=== PATIENT | male | born 1950 | race Caucasian/White ===

== ENCOUNTER 2016-07-20 11:11 | Emergency (ER) | payer BC ==
[2016-07-20 11:26] VITALS: BP 110/67
--- NOTE | 2016-07-20 13:10 | UC ---
Kendrick Hinojosa Adam, scribed for Rosalina Man MD on 07/20/16 at 1125 . Cardiac HPI - HPI Summary HPI Summary: Pt is a 65 year old male presenting with CP. He first felt a pressure in the sub -sternal region of his chest as he was exerting himself several days ago. He thought that it was GERD and took Prevacid and Mylanta which did not help, but the pain resolved spontaneously. He has been having the same chest pressure intermittently since then. It tends to dissipate after the pt sits down for approximately 10 minutes. He reports SOB associated with the CP. He also reports ankle edema, worse in the left. He denies diaphoresis, nausea, cough, dizziness, dysuria, rash. He states that the pain is aggravated by exertion. He states that it has been a very stressful week and he has been very physically active in helping with construction at his home. PMHx of HTN. FMHx of DM. - History of Current Complaint Stated Complaint: CHEST COMPLAINT Time Seen by Provider: 07/20/16 11:21 Hx Obtained From: Patient Onset/Duration: Gradual Onset, Lasting Days, Still Present Timing: Intermittent Episodes Lasting: - Approximately 10 minutes Initial Severity: Moderate Current Severity: Moderate Chest Pain Location: Lower Sternal Character: Pressure/Squeezing Aggravating: Exertion Alleviating: Rest Associated Signs & Symptoms: Positive: SOB, Swelling - BLE - Allergy/Home Medications Allergies/Adverse Reactions: Allergies Allergy/AdvReac Type Severity Reaction Status Date / Time Codeine Allergy Unknown Unknown Verified 07/20/16 12:37 Reaction Details PMH/Surg Hx/FS Hx/Imm Hx Cardiovascular History Of: Reports: Hypertension - Family History Known Family History: Positive: Diabetes - Social History Smoking Status (MU): Never Smoked Tobacco Review of Systems Constitutional: Negative Respiratory: Shortness Of Breath Cardiovascular: Chest Pain Musculoskeletal: Edema Neurological: Negative All Other Systems Reviewed And Are Negative: Yes Physical Exam Triage Information Reviewed: Yes Appearance: No Pain Distress, Well-Nourished, Other: - [place] color Eyes: Positive: Conjunctiva Clear, Other: - Clear corneas ENT: Positive: Pharynx normal - No purulence, Other: - Normal TM's and canals, no discharge. Normal nasal mucosa.. Negative: Pharyngeal erythema, Nasal drainage, TM red, Tonsillar swelling, Tonsillar exudate Dental Exam: Normal Neck: Positive: Supple, Nontender, Other: - FROM, no crepitus, no masses, no JVD. Respiratory: Positive: Chest non-tender, Normal breath sounds, No respiratory distress. Negative: Rhonchi, Wheezing Cardiovascular: Positive: RRR, No Murmur, Pulses Normal - Good pedal pulses. Abdomen Description: Positive: Nontender, No Organomegaly. Negative: Bruit, CVA Tenderness (R), CVA Tenderness (L) Bowel Sounds: Positive: Present, Other: - Normoactive Musculoskeletal: Positive: Strength Intact, ROM Intact, Other: - 2-3+ pitting edema in both lower extremities. Neurological: Positive: Alert, Muscle Tone Normal, Other: - Oriented x3. Normal DTR's and normal cranial nerves. Psychological: Positive: Normal Response To Family, Age Appropriate Behavior Skin: Negative: rashes, significant lesion(s) Diagnostics - Laboratory Diagnostic Studies Completed/Ordered: EKG @ 11:27. 65 BPM. Normal sinus rhythm. ST segment depressions in II, II, aVF, V4, V5, and V6. These are new from . - Clinical Impression Provider Diagnoses: CAD, angina. Discharge - Discharge Plan Condition: Stable Disposition: AGAINST MEDICAL ADVICE Referrals: Torsten Rudd MD [Primary Care Provider] - The documentation as recorded by the Kendrick jauregui Adam accurately reflects the service I personally performed and the decisions made by , Rosalina Man MD.
== END 2016-07-20 12:20 | disposition left against medical advice (07) ==
LOC: UCEAST 11:11
DX: I25.119 Atherosclerotic heart disease of native coronary artery with unspecified angina pectoris (principal); Z88.5 Allergy status to narcotic agent
CPT/HCPCS: 93005; 99212; G0463

== ENCOUNTER 2016-07-20 12:33 | Inpatient (IN) | payer BC ==
[2016-07-20] MEDS ORDERED: NS 0.9% 1000 ML* 1,000 ML IV SCH (13:00)
--- NOTE | 2016-07-20 13:29 | RAD ---
HISTORY: Chest pain COMPARISONS: None VIEWS: 2: Frontal dual-energy and lateral views of the chest. FINDINGS: CARDIOMEDIASTINAL SILHOUETTE: The cardiomediastinal silhouette is normal. SUSHMA: The sushma are normal. PLEURA: The costophrenic angles are sharp. No pleural abnormalities are noted. LUNG PARENCHYMA: There is hyperinflation with flattening of the diaphragm and expansion of the AP diameter of the chest. ABDOMEN: The upper abdomen is clear. There is no subphrenic gas. BONES AND SOFT TISSUES: Degenerative changes are noted along the spine. OTHER: None. IMPRESSION: HYPERINFLATION, CONSISTENT WITH COPD. NO ACTIVE CARDIOPULMONARY DISEASE.
[2016-07-20 13:37] LABS: Hematocrit 34 % (42-52); Hemoglobin 11.4 g/dl (14.0-18.0); Mean Corpuscular HGB Conc 34 g/dl (31-36); Mean Corpuscular Hemoglobin 28 pg (27-31); Mean Corpuscular Volume 84 fL (80-94); Mean Platelet Volume 8 um3 (7.4-10.4); Red Blood Count 4.05 10^6/ul (4.0-5.4); Red Cell Distribution Width 13 % (10.5-15); White Blood Count 6.2 10^3/ul (3.5-10.8)
[2016-07-20 13:53] LABS: ALT 21 U/L (7-52); AST 15 U/L (13-39); Albumin 3.6 g/dL (3.2-5.2); Alkaline Phosphatase 70 U/L (34-104); Anion Gap 5 mmol/L (2-11); BUN/Creatinine Ratio 12.1 (8-20); Blood Urea Nitrogen 11 mg/dL (6-24); C Reactive Protein 3.99 mg/L (< 5.00); CO2 Carbon Dioxide 28 mmol/L (22-32); Calcium 9.5 mg/dL (8.6-10.3); Chloride 104 mmol/L (101-111); Creatine Kinase 42 U/L (10-223); EGFR African American 108.2 (>60); EGFR Non-African American 84.1 (>60); Globulin 3.5 g/dL (2-4); Glucose 96 mg/dL (70-100); Lipase 24 U/L (11.0-82.0); Magnesium 1.8 mg/dL (1.9-2.7); Potassium 4.1 mmol/L (3.5-5.0); Sodium 137 mmol/L (133-145); Total Protein 7.1 g/dL (6.4-8.9)
[2016-07-20 13:58] LABS: Troponin I 0.69 ng/mL (<0.04)
[2016-07-20 14:09] LABS: Urine Bacteria Absent (Absent); Urine Bilirubin Negative (Negative); Urine Glucose Negative (Negative); Urine Nitrite Negative (Negative)
[2016-07-20 14:19] LABS: TSH (Thyroid Stimulating Horm) < 0.03 mcIU/mL (0.34-5.60)
[2016-07-20] MEDS ORDERED: Ondansetron INJ* 2 MG/ML VIAL IV PRN (15:04)
[2016-07-20] MEDS ORDERED: Morphine INJ* 2 MG/ML 1 ML CARPUJECT IV PRN (15:04)
[2016-07-20] MEDS ORDERED: Atenolol TAB* 25 MG PO ONE (15:12)
[2016-07-20] MEDS ORDERED: Aspirin EC Low Dose* 81 MG TAB.EC PO ONE (15:22)
--- NOTE | 2016-07-20 15:24 | ED ---
Jaciel Hinojosa Billy, scribed for Stanley Centeno MD on 07/20/16 at 1256 . HPI Chest Pain - HPI Summary HPI Summary: Patient is a 65 year-old male coming to [facility] presenting with intermittent, non- radiating, midsternal chest pain with exertion starting 5 days ago. He states that at its worst, during onset, pain severity was 4/10, and was accompanied with moderate SOB. Each episode lasts approximately 5-10 minutes, but at its worst, it lasted 15 minutes. He describes pressure and squeezing. It was worse with exertion, improved with rest. He reports LUE numbness, although he states that this has happened previously, unassociated with chest pain. He also notes swollen ankles bilaterally last night. He denies any nausea or diaphoresis. At this time in the ED, he states he has on pain. He states he has been under "extreme stress" since last week. PMHx of HTN and GERD. No previous stress tests , no history of chest pain. - History of Current Complaint Chief Complaint: EDChestPainROMI Time Seen by Provider: 07/20/16 12:45 Hx Obtained From: Patient Onset/Duration: Started Days Ago Timing: Intermittent, Lasting Minutes Initial Severity: Moderate Current Severity: None Pain Intensity: 0 - No pain in the ED at this time; 4/10 at its worst 5 days ago. Pain Scale Used: 0-10 Numeric Chest Pain Location: Mid Sternal Chest Pain Radiates: No Character: Pressure/Squeezing Aggravating Factor(s): Exertion, Other: - stress Alleviating Factor(s): Rest Associated Signs and Symptoms: Positive: Chest Pain, Recent Stress, Numbness - LUE, Shortness of Breath, Edema - ankles. Negative: Diaphoresis, Nausea - Allergy/Home Medications Allergies/Adverse Reactions: Allergies Allergy/AdvReac Type Severity Reaction Status Date / Time Codeine Allergy Unknown Unknown Verified 07/20/16 12:37 Reaction Details PMH/Surg Hx/FS Hx/Imm Hx Cardiovascular History: Reports: Hx Hypertension GI History: Reports: Hx Gastroesophageal Reflux Disease Infectious Disease History: No Infectious Disease History: Denies: Traveled Outside the [place] in Last 30 Days - Family History Known Family History: Positive: Diabetes - Social History Alcohol Use: Rare Substance Use Type: Reports: None Smoking Status (MU): Never Smoked Tobacco Review of Systems Negative: Skin Diaphoresis Positive: Chest Pain Positive: Shortness Of Breath Negative: Nausea Positive: Edema Positive: Numbness All Other Systems Reviewed And Are Negative: Yes Physical Exam Triage Information Reviewed: Yes Vital Signs On Initial Exam: Initial Vitals Temp Pulse Resp BP Pulse Ox 97.5 F 72 18 143/68 99 07/20/16 12:37 07/20/16 12:37 07/20/16 12:37 07/20/16 12:37 07/20/16 12:37 Vital Signs Reviewed: Yes Appearance: Positive: Well-Appearing, No Pain Distress Skin: Positive: Warm, Skin Color Reflects Adequate Perfusion, Dry Head/Face: Positive: Normal Head/Face Inspection Eyes: Positive: EOMI, ANA ENT: Positive: Normal ENT inspection Neck: Positive: Supple, Nontender Respiratory/Lung Sounds: Positive: Clear to Auscultation, Breath Sounds Present Cardiovascular: Positive: RRR Abdomen Description: Positive: Nontender, Soft Musculoskeletal: Positive: Edema Left - Trace pedal edema, Edema Right - Trace pedal edema Neurological: Positive: Normal, Sensory/Motor Intact, Alert, Oriented to Person Place, Time Psychiatric: Positive: Affect/Mood Appropriate Diagnostics - Vital Signs Vital Signs Temp Pulse Resp BP Pulse Ox 07/20/16 12:37 97.5 F 72 18 143/68 99 - Laboratory Lab Results: Lab Results 07/20/16 07/20/16 07/20/16 Range/Units 13:27 13:27 13:27 WBC 6.2 (3.5-10.8) 10^3/ul RBC 4.05 (4.0-5.4) 10^6/ul Hgb 11.4 L (14.0-18.0) g/dl Hct 34 L (42-52) % MCV 84 (80-94) fL MCH 28 (27-31) pg MCHC 34 (31-36) g/dl RDW 13 (10.5-15) % Plt Count 274 (150-450) 10^3/ul MPV 8 (7.4-10.4) um3 Neut % (Auto) 76.6 (38-83) % Lymph % (Auto) 13.4 L (25-47) % [place] % (Auto) 8.7 (1-9) % Eos % (Auto) 0.7 (0-6) % Baso % (Auto) 0.6 (0-2) % Absolute Neuts (auto) 4.8 (1.5-7.7) 10^3/ul Absolute Lymphs (auto) 0.8 L (1.0-4.8) 10^3/ul Absolute Monos (auto) 0.5 (0-0.8) 10^3/ul Absolute Eos (auto) 0 (0-0.6) 10^3/ul Absolute Basos (auto) 0 (0-0.2) 10^3/ul Absolute Nucleated RBC 0 10^3/ul Nucleated RBC % 0 ESR Pending INR (Anticoag Therapy) 1.04 (0.89-1.11) APTT 29.3 (26.0-36.3) seconds D-Dimer, Quantitative 230 (Less Than 230) ng/mL Sodium 137 (133-145) mmol/L Potassium 4.1 (3.5-5.0) mmol/L Chloride 104 (101-111) mmol/L Carbon Dioxide 28 (22-32) mmol/L Anion Gap 5 (2-11) mmol/L BUN 11 (6-24) mg/dL Creatinine 0.91 (0.67-1.17) mg/dL Est GFR ( Amer) 108.2 (>60) Est GFR (Non-Af Amer) 84.1 (>60) BUN/Creatinine Ratio 12.1 (8-20) Glucose 96 (70-100) mg/dL Lactic Acid (0.5-2.0) mmol/L Calcium 9.5 (8.6-10.3) mg/dL Magnesium 1.8 L (1.9-2.7) mg/dL Total Bilirubin 0.50 (0.2-1.0) mg/dL AST 15 (13-39) U/L ALT 21 (7-52) U/L Alkaline Phosphatase 70 (34-104) U/L Total Creatine Kinase 42 (10-223) U/L CK-MB (CK-2) 2.2 (0.6-6.3) ng/mL Troponin I 0.69 H* (<0.04) ng/mL C-Reactive Protein 3.99 (< 5.00) mg/L B-Natriuretic Peptide ( - 100) pg/mL Total Protein 7.1 (6.4-8.9) g/dL Albumin 3.6 (3.2-5.2) g/dL Globulin 3.5 (2-4) g/dL Albumin/Globulin Ratio 1.0 (1-3) Lipase 24 (11.0-82.0) U/L TSH < 0.03 L (0.34-5.60) mcIU/mL Free T4 Pending Total T3 Pending Urine Color Urine Appearance Urine pH (5-9) Ur Specific [place] (1.010-1.030) Urine Protein (Negative) Urine Ketones (Negative) Urine Blood (Negative) Urine Nitrate (Negative) Urine Bilirubin (Negative) Urine Urobilinogen (Negative) Ur Leukocyte Esterase (Negative) Urine WBC (Auto) (Absent) Urine RBC (Auto) (Absent) Urine Bacteria (Absent) Urine Glucose (Negative) 07/20/16 07/20/16 07/20/16 Range/Units 13:27 13:27 13:35 WBC (3.5-10.8) 10^3/ul RBC (4.0-5.4) 10^6/ul Hgb (14.0-18.0) g/dl Hct (42-52) % MCV (80-94) fL MCH (27-31) pg MCHC (31-36) g/dl RDW (10.5-15) % Plt Count (150-450) 10^3/ul MPV (7.4-10.4) um3 Neut % (Auto) (38-83) % Lymph % (Auto) (25-47) % [place] % (Auto) (1-9) % Eos % (Auto) (0-6) % Baso % (Auto) (0-2) % Absolute Neuts (auto) (1.5-7.7) 10^3/ul Absolute Lymphs (auto) (1.0-4.8) 10^3/ul Absolute Monos (auto) (0-0.8) 10^3/ul Absolute Eos (auto) (0-0.6) 10^3/ul Absolute Basos (auto) (0-0.2) 10^3/ul Absolute Nucleated RBC 10^3/ul Nucleated RBC % ESR INR (Anticoag Therapy) (0.89-1.11) APTT (26.0-36.3) seconds D-Dimer, Quantitative (Less Than 230) ng/mL Sodium (133-145) mmol/L Potassium (3.5-5.0) mmol/L Chloride (101-111) mmol/L Carbon Dioxide (22-32) mmol/L Anion Gap (2-11) mmol/L BUN (6-24) mg/dL Creatinine (0.67-1.17) mg/dL Est GFR ( Amer) (>60) Est GFR (Non-Af Amer) (>60) BUN/Creatinine Ratio (8-20) Glucose (70-100) mg/dL Lactic Acid 0.9 (0.5-2.0) mmol/L Calcium (8.6-10.3) mg/dL Magnesium (1.9-2.7) mg/dL Total Bilirubin (0.2-1.0) mg/dL AST (13-39) U/L ALT (7-52) U/L Alkaline Phosphatase (34-104) U/L Total Creatine Kinase (10-223) U/L CK-MB (CK-2) (0.6-6.3) ng/mL Troponin I (<0.04) ng/mL C-Reactive Protein (< 5.00) mg/L B-Natriuretic Peptide 164 H ( - 100) pg/mL Total Protein (6.4-8.9) g/dL Albumin (3.2-5.2) g/dL Globulin (2-4) g/dL Albumin/Globulin Ratio (1-3) Lipase (11.0-82.0) U/L TSH (0.34-5.60) mcIU/mL Free T4 Total T3 Urine Color Yellow Urine Appearance Clear Urine pH 7.0 (5-9) Ur Specific [place] 1.013 (1.010-1.030) Urine Protein Negative (Negative) Urine Ketones 1+ H (Negative) Urine Blood 1+ H (Negative) Urine Nitrate Negative (Negative) Urine Bilirubin Negative (Negative) Urine Urobilinogen Negative (Negative) Ur Leukocyte Esterase Negative (Negative) Urine WBC (Auto) Absent (Absent) Urine RBC (Auto) 2+(6-10/hpf) H (Absent) Urine Bacteria Absent (Absent) Urine Glucose Negative (Negative) Result Diagrams: 07/20/16 13:27 01/25/17 13:27 Lab Statement: Any lab studies that have been ordered have been reviewed, and results considered in the medical decision making process. - Radiology CXR Radiology Interpretation Completed By: Radiologist - HYPERINFLATION, CONSISTENT WITH COPD. NO ACTIVE CARDIOPULMONARY DISEASE. - EKG 1241 Cardiac Rate: NL - 76 bpm EKG Rhythm: Sinus Rhythm EKG Interpretation: 2mm ANDREW in V2; 1mm ANDREW in V1; ST depression inferiorlateral ; LVH Re-Evaluation - Re-Evaluation First Eval Re-Evaluation Time: 14:35 Comment: Labs reviewed. Plan for admission discussed. Chest Pain Course/Dx - Course Course Of Treatment: Because the patient only has one kidney, he was not given aspirin. Assessment/Plan: DISCUSSED RESULTS WITH PATIENT. DR LEYVA SAW PT IN ED. ADMIT HOSPITALIST STABLE. - Diagnoses Provider Diagnoses: Heart attack, Hyperthyroidism - Provider Notifications Discussed Care Of Patient With: Dr. Leyva (cardiology) @ 4000: will see the patient in the ED. Dr. Hilton (hospitalist) @ [phone]: accepts admission. Discharge - Discharge Plan Condition: Stable Disposition: ADMITTED TO [facility] Referrals: Torsten Rudd MD [Primary Care Provider] - The documentation as recorded by the Jaciel jauregui Billy accurately reflects the service I personally performed and the decisions made by me, Stanley Centeno MD.
[2016-07-20] MEDS ORDERED: Heparin DRIP 25,000 UNITS(*) 25,000 UNITS/500 ML BAG IVPB SCH (15:30)
[2016-07-20 15:47] LABS: Free T4 1.84 ng/dL (0.61-1.12)
[2016-07-20] MEDS ORDERED: Heparin VIAL(*) 5000 UNITS/ML VIAL (FIVE THOUSAND) IV SCH (16:00)
[2016-07-20] MEDS ORDERED: Enoxaparin(*) 40 MG/0.4 ML SYR SUBCUT SCH (16:00)
[2016-07-20 16:17] LABS: Erythrocyte Sed Rate 44 mm/Hr (0-20)
[2016-07-20] MEDS ORDERED: Atenolol TAB* 50 MG ONE (16:36)
--- NOTE | 2016-07-20 16:56 | ECHO ---
Patient: LEONOR JON [facility] Rec#: [id number] : 1950 Date: 07/20/2016 Age: 65y Weight: kg / NaN lbs Sex: M Room#: ED-18 Admit Date#: 07/20/2016 Type: Inpatient Referring: Jyoti Beltran MD Reading: Jyoti Beltran MD [employer]ker: Chad Ravi RDCS Transthoracic Echocardiogram Indication: CHEST PAIN BP: 143/68 HR: 83 Rhythm: NSR Findings History: GERD,HTN Technical Comments: The study quality is good. Completed 1600 Left Ventricle: The left ventricular chamber size is normal. Global left ventricular wall motion and contractility are within normal limits. The left ventricle appears hyperdynamic.Base of the inferior wall hypokinetic on the 2 chamber view. The estimated ejection fraction is 60-65%. Normal left ventricular diastolic filling is observed. Left Atrium: The left atrial chamber size is normal. Right Ventricle: The right ventricular cavity size is normal. The right ventricular global systolic function is normal. Right Atrium: The right atrial cavity size is normal. Aortic Valve: The aortic valve is trileaflet. There is no evidence of aortic regurgitation. There is no evidence of aortic stenosis. Mitral Valve: The mitral valve leaflets are mildly thickened. There is mild to moderate mitral regurgitation. The mitral regurgitant jet is posteriorly directed. Tricuspid Valve: The tricuspid valve appears normal in structure and function. There is trace tricuspid regurgitation. Unable to estimate the right ventricular systolic pressure. Pulmonic Valve: There is mild pulmonic regurgitation. Pericardium: There is no pericardial effusion. Aorta: There is no dilatation of the ascending aorta. There is no dilatation of the aortic arch. There is no dilation of the aortic root. Pulmonary Artery: The main pulmonary artery is not well visualized. Venous: The inferior vena cava is dilated. There is an approximate 50% respiratory change in the inferior vena cava dimension. Conclusions The left ventricle appears hyperdynamic overall. The base of the inferior wall is hypokinetic on the 2 chamber view. The estimated ejection fraction is 60-65%. The right ventricular global systolic function is normal. There is mild to moderate mitral regurgitation. There is trace tricuspid regurgitation. No prior echo to compare. Measurements Name Value Normal Range RVIDd (AP) 2D 2.6 cm (0.9 - 2.6) RVDdMajor (2D) 3.1 cm (2.2 - 4.4) RAd ISD 4CH 3.5 cm (3.4 - 4.9) RA (A4C)W 3.6 cm (2.9 - 4.6) IVSd (2D) 0.9 cm (0.6 - 1) LVPWd (2D) 1 cm (0.6 - 1) LVIDd (2D) 4.5 cm (3.6 - 5.4) LVIDs (2D) 3.2 cm - LV FS (2D) 30 % (25 - 45) Aortic Annulus 1.7 cm (1.4 - 2.6) Ao root diameter (2D) 3.1 cm (2.1 - 3.5) Ascending Ao 2.9 cm (2.1 - 3.4) Aortic arch 2.6 cm (1.8 - 3.4) LA dimension (AP) 2D 3.7 cm (2.3 - 3.8) LAd ISD 4CH 5.1 cm (2.9 - 5.3) LA ISD 4CH W 3.7 cm (2.5 - 4.5) Name Value Normal Range LA ESV SP 4CH (A/L) 37 ml - LA ESV SP 2CH (A/L) 54 ml - LA ESV BP (A/L) 48 ml - LA ESV BP (A/L) index 24.64 ml/m2 - LA ESV SP 4CH (MOD) 34 ml - LA ESV SP 2CH (MOD) 52 ml - Name Value Normal Range MV E-wave Vmax 0.93 m/sec - MV deceleration time 83 msec - MV A-wave Vmax 0.86 m/sec - MV E:A ratio 1.09 ratio - LV septal e' Vmax 0.1 m/sec - LV lateral e' Vmax 0.13 m/sec - LV E:e' septal ratio 9.3 ratio - LV E:e' lateral ratio 7.1 ratio - Name Value Normal Range LVOT Vmax 1.3 m/sec - Name Value Normal Range IVC diameter 2.5 cm - Name Value Normal Range PV Vmax 1.2 m/sec -
--- NOTE | 2016-07-20 17:21 | CONS ---
CARDIOLOGY CONSULTATION: DATE OF CONSULT: 07/20/16 REASON FOR CONSULT: Elevated troponins. CHIEF COMPLAINT: Shortness of breath. HISTORY OF PRESENT ILLNESS: Mr. Soto is a 65-year-old gentleman with no prior cardiac history. The patient states that he had been in his usual state of health until last Monday. He had had an extremely stressful week. 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 On Monday, he could not walk outside at all due to profound dyspnea. On Monday, he was able to walk a little better and go to the mailbox. Prior to this, because of the work being done, he had been able to do very strenuous work. He typically carries boxes of books in his job and he was lifting boxes and performing more vigorous work in his barn than usual. For several days, he had been doing very strenuous physical labor without any trouble. The patient denies orthopnea or PND. He had adjusted his reflux medications, but otherwise, there had been no changes in medications and no recent travel. No recent infectious illnesses. PAST MEDICAL HISTORY: Reflux, single kidney, elevated PSA, hypertension. PAST SURGICAL HISTORY: Includes inguinal hernia repair. FAMILY HISTORY: Significant in that his mother in her 80s of a hemorrhagic stroke. His father had a history of strokes and plaque, it sounds like in the carotid system. He has a sister who is alive. 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 He has never smoked. No history of drug abuse. REVIEW OF SYSTEMS: Negative for recent changes in bowel or bladder habits. He did say that he had a new reflux medication relatively recently that gave him bad dreams and he did awaken within the last month one night with diaphoresis in the chest area, but he felt otherwise fine. When I found on exam that he had lower extremity edema, he admitted that that was relatively new. Although he eats out much of the time, he has not changed his eating habits or increased the salt intake recently. All other review of systems was unremarkable. PHYSICAL EXAM: The patient is a tall, lean, older gentleman, in no acute distress. He is 6 feet tall, weighs 160 pounds with a BMI of 22. Blood pressure 143/68, pulse is 72 and regular, respiratory rate is 18, oxygen saturation 99% on room air, temperature 97.5. HEENT: Pupils are equal and round. Mucous membranes moist. Neck without appreciable increased JVP. Palpable carotid pulses that are free of bruits and symmetrical bilaterally. Breath sounds were clear in all darby good effort. No wheezing, rales, or rhonchi. Mild kyphoscoliosis incidentally noted. Coronary: S1, S2 regular. Soft 2/6 systolic murmur heard in the left lower sternal border with radiation towards the apex. Abdomen: Flat. Active bowel sounds. Soft, nontender. No appreciable hepatosplenomegaly or masses. Lower extremities show mild edema, 1 + in the ankle extending up into the lower leg. The lower extremities are warm. DIAGNOSTIC STUDIES/LAB DATA: The patient's 12-lead ECG shows normal sinus rhythm, 76 beats a minute, QRS axis of +75, normal AV and IV conduction times. He has mild ST depression in the inferolateral leads and biphasic T waves as well, nonspecific finding. Chest x-ray shows hyperinflation, but no infiltrates. White count 6.2, hemoglobin 11.4, platelets 274. INR 1.04, PTT of 29. D-dimer 230. Sodium 137, potassium 4.1, chloride 104, bicarb 28, BUN 11, creatinine 0.91, glucose 96. Hemoglobin A1c 6.1 (08/14/15). Magnesium 1.8. Troponin 0.69. BNP of 164. From 08/14/15, LDL cholesterol 136, total cholesterol 208, HDL cholesterol 59, triglycerides 67. TSH today is less than 0.03 mcIU/mL. Troponin #1 is 0.69. C-reactive protein 3.99. SUMMARY: Mr. Soto is a 65-year-old gentleman with acute onset of profound dyspnea 6 days ago following significant physical and emotional stress. He has a mild elevation in troponins and an abnormal ECG with nonspecific diffuse changes, although predominantly in the anterolateral leads. With this alone, the differential to my mind was Takotsubo syndrome and/or underlying coronary artery disease. The patient's very low TSH, however, is consistent with significant hyperthyroid disease which can lead to a cardiomyopathy. The patient has a murmur of tricuspid insufficiency and the lower extremity edema could be related to ventricular function, valvular function, and thyroid abnormalities. In terms of the patient's exertional dyspnea with elevated troponins and abnormal ECG, I am getting an echocardiogram to look at ventricular and valvular function. I have recommended a cardiac catheterization to evaluate for underlying atherosclerotic disease. In terms of medical management, I am recommending beta blocking him. We could start with Lopressor 25 mg b.i.d. and titrate as his vitals respond. Once we get his echocardiogram, we can see if there are indications to add an PEPE inhibitor or diuretics, but based on his clear chest x-ray, I do not recommend diuretics at this time. I do recommend baby aspirin and initiation of unfractionated heparin or Lovenox. For the LDL cholesterol of 136 a year ago, we could update this and empirically start him on a moderate-dose statin while we work up for possible atherosclerotic heart disease. For the very low TSH, we will ask for hospitalist to assist in a formal workup and diagnosis of his hyperthyroid condition. CC: Dr. Torsten Rudd; Hospitalist Service* [id number]/[facility] #: [id number] MTDD
--- NOTE | 2016-07-20 19:07 | HP ---
ADMISSION HISTORY AND PHYSICAL: DATE OF ADMISSION: 07/20/16 PRIMARY CARE PROVIDER: Dr. Rudd. ADMITTING PROVIDER: SHAYY Smith SUPERVISING PHYSICIAN: Dr. Torsten Hilton.* (DICTATED BY SHAYY SMITH) CONSULTING ROUTE SALESPERSON: Dr. Jyoti Beltran. CHIEF COMPLAINT: Dyspnea on exertion. HISTORY OF PRESENT ILLNESS: This is a 65-year-old gentleman with history of GERD and hypertension, who presented to the emergency department with complaints of dyspnea on exertion. The patient's symptoms actually started acutely about 6 days ago and has been improving but persistent over that time frame. The patient has been involved in a construction project on his barn at home. He does have hired laborers, but has been working a significant amount himself cleaning the barn out and in addition to the physical labor that he has been completing, he has also been incredibly emotionally stressed about the work that is being completed as well. On July 15, which is now 5 days ago , the patient had an acute episode of severe dyspnea on exertion. He denied associated chest pain; however, the patient's symptoms mostly resolved with rest , but since that time he has continued to have dyspnea with fairly minimal exertion, but to a lesser extent than what occurred on July 15. He denies any tremors or palpitations. He denies any significant weight loss. No family history of thyroid disorder or other endocrine concerns. The patient has no history of coronary disease. PAST MEDICAL HISTORY: 1. GERD. 2. Hypertension. 3. Localized prostate cancer, being followed closely by Urology. PAST SURGICAL HISTORY: Inguinal hernia repair. HOME MEDICATIONS: 1. Lisinopril 10 mg p.o. daily. 2. Prilosec 20 mg p.o. daily. FAMILY HISTORY: Mother and father both of complications of stroke. SOCIAL HISTORY: The patient lives alone. He is a bachelor. 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 Denies any smoking history and rarely consumes alcohol. REVIEW OF SYSTEMS: As noted above in HPI and otherwise negative. PHYSICAL EXAMINATION GENERAL: This is a very pleasant and obviously intelligent 65-year-old gentleman, in no acute distress. VITAL SIGNS: Initial vitals, temperature 97.5 degrees Fahrenheit, pulse 72 beats per minute, respiratory rate 18 per minute, oxygen saturation 99% on room air, blood pressure 143/68 mmHg. HEENT: Head is normocephalic, atraumatic. Mucous membranes are pink and moist. NECK: Neck is free of lymphadenopathy. No obvious thyromegaly or tenderness. No JVD appreciated. RESPIRATORY: Lungs are clear to auscultation without wheezes, crackles, or rhonchi. CARDIOVASCULAR: Heart has a regular rate and rhythm without murmurs, rubs, or gallops. ABDOMEN: Abdomen is soft and nontender to palpation. EXTREMITIES: There is trace to 1+ edema in both lower extremities. PSYCH: The patient is alert and appropriately oriented. DIAGNOSTIC STUDIES/LAB DATA: CBC shows white blood cell count of 6200, hemoglobin of 11.4 g/dL, platelet count of 274,000. ESR of 44. INR normal at 1.04. D-dimer negative at 230. Comprehensive metabolic panel is largely unremarkable with a sodium of 137 mmol/L, potassium 4.1 mmol/L, gap of 5 with a serum bicarb of 28, creatinine 0.91 with an estimated GFR of 84. Magnesium 1.8 , calcium 9.5. Transaminases and total bilirubin within normal limits. Troponin elevated at 0.69. CRP is normal at 3.99. BNP mildly elevated at 164. TSH is undetectable. Free T4 is high at 1.84. Total T3 is normal at 1.1. Urinalysis is positive for ketones and blood and otherwise unremarkable. Imaging: EKG shows a sinus rhythm with diffuse ST depression. There is no old EKG available for comparison. Chest x-ray shows no acute process. Preliminary echo read shows hyperdynamic left ventricle without any other obvious pathology. ASSESSMENT AND PLAN: This is a 65-year-old gentleman with a history of hypertension and gastroesophageal reflux disease, who presents today with chief complaint of dyspnea on exertion with an elevated troponin and an undetectable TSH. 1. Dyspnea on exertion - the patient has an obvious elevated troponin and in this case, it seems appropriate to treat him as acute coronary syndrome. Initiate statin, aspirin, beta maryana, and heparin drip. Dr. Jyoti Beltran has been involved in this case and has asked Dr. Reyes to please evaluate the patient for cardiac catheterization tomorrow morning. Preliminary echo demonstrates hyperdynamic ventricle. Considered Takotsubo cardiomyopathy or Graves disease, or just an acute myocardial infarction responsible for his symptoms. Also, considered pericarditis based on the appearance of his EKG. Sed rate and CRP are largely unremarkable. No obvious effusion appreciated on initial echo, but this is still potentially on the differential. 2. Depressed TSH - TSH is undetectable. Added on a free T4 and total T3. We will empirically beta block with a nonspecific beta maryana, specifically initiated atenolol. Depending on results of free T4 and total T3, consider Endocrinology consultation either on an inpatient or outpatient basis. 3. Hypertension - we will hold his lisinopril and favor for atenolol at this time. 4. Gastroesophageal reflux disease - continue PPI. 5. Code status - the patient is full code. 6. DVT prophylaxis - the patient will be fully anticoagulated on heparin drip for acute coronary syndrome. 7. Healthcare proxy is unknown. DISPOSITION: The patient is being admitted as an inpatient with diagnosis of acute coronary syndrome. I anticipate length of stay to be greater than 2 midnights. SHAYY SMITH CC: Dr. Rudd* [id number]/CPS #: [id number] MTDD
[2016-07-20] MEDS ORDERED: Enoxaparin(*) 60 MG/0.6 ML SYR SUBCUT ONE (20:00)
[2016-07-20] MEDS: Metoprolol Tartrate TAB* 25 MG PO SCH (20:36)
[2016-07-20] MEDS: Omeprazole CAP* 20 MG PO SCH (20:36)
[2016-07-20] MEDS: Atorvastatin* 80 MG TAB PO SCH (20:37)
[2016-07-20] MEDS ORDERED: Atorvastatin* 40 MG TAB PO SCH (21:00)
[2016-07-21] MEDS: Metoprolol Tartrate TAB* 25 MG PO SCH ×3 (04:28→23:42)
[2016-07-21 05:27] LABS: Corrected Retic Count 1.6 % (0.5-1.5); Hematocrit 30 % (42-52); Hemoglobin 10.2 g/dl (14.0-18.0); Immature Retic Fraction 0.54; Maturation Factor Retic 1.5; Mean Corpuscular HGB Conc 34 g/dl (31-36); Mean Corpuscular Hemoglobin 28 pg (27-31); Mean Corpuscular Volume 83 fL (80-94); Mean Platelet Volume 8 um3 (7.4-10.4); Red Blood Count 3.64 10^6/ul (4.0-5.4); Red Cell Distribution Width 13 % (10.5-15); White Blood Count 6.9 10^3/ul (3.5-10.8)
[2016-07-21 05:41] LABS: BUN/Creatinine Ratio 16.5 (8-20); Calcium 8.8 mg/dL (8.6-10.3); EGFR African American 100.5 (>60); EGFR Non-African American 78.2 (>60); Potassium 3.9 mmol/L (3.5-5.0)
[2016-07-21] MEDS: Aspirin EC Low Dose* 81 MG TAB.EC PO SCH (08:27)
[2016-07-21] MEDS ORDERED: Atenolol TAB* 25 MG PO SCH (09:00)
[2016-07-21] MEDS ORDERED: NS 0.9% 1000 ML* 1,000 ML IV SCH ×2 (09:00→15:15)
[2016-07-21] MEDS: Omeprazole CAP* 20 MG PO SCH (10:15)
[2016-07-21] MEDS ORDERED: Midazolam* 1 MG/ML 5 ML VIAL (5 MG) ONE (12:37)
[2016-07-21] MEDS ORDERED: fentaNYL* 50 MCG/ML 2 ML VIAL (100 MCG VIAL) ONE (12:37)
[2016-07-21] MEDS ORDERED: Heparin(*) 1000 UNIT/ML 10 ML VIAL CATH LAB IV ONE (12:37)
[2016-07-21] MEDS ORDERED: VERAPAMIL 2.5 MG/ML 4 ML VIAL ONE (12:37)
[2016-07-21] MEDS ORDERED: nitroGLYCERIN DRIP* 250 ML ONE (12:38)
[2016-07-21] MEDS ORDERED: Lidocaine 1% INJ* 10 MG/ML 30 ML SDV ONE (12:38)
[2016-07-21] MEDS ORDERED: Heparin 2 UNITS/ML IVPREMIX* 3,000 ML IV ONE (12:38)
[2016-07-21] MEDS ORDERED: Iodixanol* (CONTRAST) 320 MG/ML 100 ML SDV ONE ×3 (12:41→14:22)
[2016-07-21] MEDS ORDERED: Ticagrelor* 90 MG TAB PO ONE (13:58)
[2016-07-21] MEDS ORDERED: Nitroglycerin TAB 0.4 MG* 0.4 MG TAB SL PRN (15:05)
[2016-07-21] MEDS ORDERED: Atropine SYRINGE* 0.1 MG/ML 10 ML SYRINGE (1 MG) ONE (15:32)
[2016-07-21 15:48] LABS: HDL Cholesterol 39.5 mg/dL
--- NOTE | 2016-07-21 17:06 | PN ---
Subjective Date of Service: 07/21/16 Interval History: patient reports he "feels really good" no further SOB. Denies CP. reports he was under a lot of stress over the weekend/week with helping putting a new roof on which he states was very stressful and very heavy labor. Denies recent weight loss, increased appetite, or palpitations Objective Active Medications: Aspirin (Aspirin Ec Low Dose*) 81 mg PO DAILY [facility] Last Admin: 07/21/16 08:27 Dose: 81 mg Atorvastatin Calcium (Lipitor*) 80 mg PO 2100 [facility] Last Admin: 07/20/16 20:37 Dose: 80 mg Sodium Chloride (Ns 0.9% 1000 Ml*) 1,000 mls @ 100 mls/hr IV .per rate [facility] Sodium Chloride (Ns 0.9% 1000 Ml*) 1,000 mls @ 100 mls/hr IV .per rate [facility] Stop: 07/21/16 19:00 Metoprolol Tartrate (Lopressor Tab*) 25 mg PO BID [facility] Morphine Sulfate (Morphine Inj (Syringe)*) 2 mg IV Q4H PRN PRN Reason: PAIN Nitroglycerin (Nitroglycerin Tab 0.4 Mg*) 0.4 mg SL Q5M PRN PRN Reason: ANGINA Omeprazole (Prilosec Cap*) 20 mg PO DAILY [facility] Last Admin: 07/21/16 10:15 Dose: Not Given Ondansetron HCl (Zofran Inj*) 4 mg IV Q4H PRN PRN Reason: NAUSEA/VOMITING Prasugrel (Effient (Nf)) 10 mg PO DAILY [facility] Ticagrelor (Brilinta*) 90 mg PO BID [facility] Stop: 07/21/16 23:59 Vital Signs 07/20/16 07/20/16 07/20/16 17:00 17:18 17:48 Temperature 98.6 F Pulse Rate 77 78 67 Respiratory 20 18 16 Rate Blood Pressure 135/67 139/78 (mmHg) O2 Sat by Pulse 97 97 100 Oximetry 07/20/16 07/20/16 07/20/16 18:15 19:37 20:04 Temperature 98.7 F Pulse Rate 63 Respiratory 16 18 18 Rate Blood Pressure 131/59 (mmHg) O2 Sat by Pulse 99 Oximetry 07/20/16 07/21/16 07/21/16 23:51 03:42 07:13 Temperature 98.7 F 98.0 F 97.5 F Pulse Rate 58 62 55 Respiratory 20 16 14 Rate Blood Pressure 131/71 132/66 124/69 (mmHg) O2 Sat by Pulse 98 98 99 Oximetry 07/21/16 07/21/16 07/21/16 08:00 11:12 13:05 Temperature 99.8 F Pulse Rate 59 Respiratory 14 18 16 Rate Blood Pressure 143/67 (mmHg) O2 Sat by Pulse 99 Oximetry 07/21/16 07/21/16 07/21/16 13:07 15:07 15:08 Temperature Pulse Rate 54 Respiratory 14 Rate Blood Pressure 120/71 (mmHg) O2 Sat by Pulse 99 Oximetry 07/21/16 07/21/16 07/21/16 15:15 15:16 15:30 Temperature 98.4 F Pulse Rate 52 52 Respiratory 20 14 15 Rate Blood Pressure 139/68 139/68 142/63 (mmHg) O2 Sat by Pulse 99 100 Oximetry 07/21/16 07/21/16 07/21/16 15:34 15:45 16:00 Temperature 98.5 F Pulse Rate 54 52 Respiratory 15 13 Rate Blood Pressure 134/70 131/65 (mmHg) O2 Sat by Pulse 100 100 Oximetry Oxygen Devices in Use Now: None Appearance: 65 healthy appearing male sitting up in bed in NAD. A+O x3 Eyes: No Scleral Icterus, PERRLA Ears/Nose/Mouth/Throat: NL Teeth, Lips, Gums, Mucous Membranes Moist Neck: Trachea Midline Respiratory: Symmetrical Chest Expansion and Respiratory Effort, Clear to Auscultation Cardiovascular: NL Sounds; No Murmurs; No JVD, RRR, No Edema Abdominal: NL Sounds; No Tenderness; No Distention Lymphatic: No Cervical Adenopathy Extremities: No Edema Skin: No Rash or Ulcers, No Nodules or Sclerosis Neurological: Alert and Oriented x 3, NL Sensation, NL Gait, NL Muscle Strength and Tone Lines/Tubes/Other Access: Clean, Dry and Intact Peripheral IV Nutrition: Taking PO's Result Diagrams: 07/21/16 04:58 07/21/16 04:58 Additional Lab and Data: Lab Results 07/20/16 07/20/16 07/20/16 Range/Units 13:27 13:27 13:27 WBC 6.2 (3.5-10.8) 10^3/ul RBC 4.05 (4.0-5.4) 10^6/ul Hgb 11.4 L (14.0-18.0) g/dl Hct 34 L (42-52) % MCV 84 (80-94) fL MCH 28 (27-31) pg MCHC 34 (31-36) g/dl RDW 13 (10.5-15) % Plt Count 274 (150-450) 10^3/ul MPV 8 (7.4-10.4) um3 Neut % (Auto) 76.6 (38-83) % Lymph % (Auto) 13.4 L (25-47) % [place] % (Auto) 8.7 (1-9) % Eos % (Auto) 0.7 (0-6) % Baso % (Auto) 0.6 (0-2) % Absolute Neuts (auto) 4.8 (1.5-7.7) 10^3/ul Absolute Lymphs (auto) 0.8 L (1.0-4.8) 10^3/ul Absolute Monos (auto) 0.5 (0-0.8) 10^3/ul Absolute Eos (auto) 0 (0-0.6) 10^3/ul Absolute Basos (auto) 0 (0-0.2) 10^3/ul Absolute Nucleated RBC 0 10^3/ul Nucleated RBC % 0 ESR Pending INR (Anticoag Therapy) 1.04 (0.89-1.11) APTT 29.3 (26.0-36.3) seconds D-Dimer, Quantitative 230 (Less Than 230) ng/mL Sodium 137 (133-145) mmol/L Potassium 4.1 (3.5-5.0) mmol/L Chloride 104 (101-111) mmol/L Carbon Dioxide 28 (22-32) mmol/L Anion Gap 5 (2-11) mmol/L BUN 11 (6-24) mg/dL Creatinine 0.91 (0.67-1.17) mg/dL Est GFR ( Amer) 108.2 (>60) Est GFR (Non-Af Amer) 84.1 (>60) BUN/Creatinine Ratio 12.1 (8-20) Glucose 96 (70-100) mg/dL Lactic Acid (0.5-2.0) mmol/L Calcium 9.5 (8.6-10.3) mg/dL Magnesium 1.8 L (1.9-2.7) mg/dL Total Bilirubin 0.50 (0.2-1.0) mg/dL AST 15 (13-39) U/L ALT 21 (7-52) U/L Alkaline Phosphatase 70 (34-104) U/L Total Creatine Kinase 42 (10-223) U/L CK-MB (CK-2) 2.2 (0.6-6.3) ng/mL Troponin I 0.69 H* (<0.04) ng/mL C-Reactive Protein 3.99 (< 5.00) mg/L B-Natriuretic Peptide ( - 100) pg/mL Total Protein 7.1 (6.4-8.9) g/dL Albumin 3.6 (3.2-5.2) g/dL Globulin 3.5 (2-4) g/dL Albumin/Globulin Ratio 1.0 (1-3) Lipase 24 (11.0-82.0) U/L TSH < 0.03 L (0.34-5.60) mcIU/mL Free T4 Pending Total T3 Pending Urine Color Urine Appearance Urine pH (5-9) Ur Specific [place] (1.010-1.030) Urine Protein (Negative) Urine Ketones (Negative) Urine Blood (Negative) Urine Nitrate (Negative) Urine Bilirubin (Negative) Urine Urobilinogen (Negative) Ur Leukocyte Esterase (Negative) Urine WBC (Auto) (Absent) Urine RBC (Auto) (Absent) Urine Bacteria (Absent) Urine Glucose (Negative) 07/20/16 07/20/16 07/20/16 Range/Units 13:27 13:27 13:35 WBC (3.5-10.8) 10^3/ul RBC (4.0-5.4) 10^6/ul Hgb (14.0-18.0) g/dl Hct (42-52) % MCV (80-94) fL MCH (27-31) pg MCHC (31-36) g/dl RDW (10.5-15) % Plt Count (150-450) 10^3/ul MPV (7.4-10.4) um3 Neut % (Auto) (38-83) % Lymph % (Auto) (25-47) % [place] % (Auto) (1-9) % Eos % (Auto) (0-6) % Baso % (Auto) (0-2) % Absolute Neuts (auto) (1.5-7.7) 10^3/ul Absolute Lymphs (auto) (1.0-4.8) 10^3/ul Absolute Monos (auto) (0-0.8) 10^3/ul Absolute Eos (auto) (0-0.6) 10^3/ul Absolute Basos (auto) (0-0.2) 10^3/ul Absolute Nucleated RBC 10^3/ul Nucleated RBC % ESR INR (Anticoag Therapy) (0.89-1.11) APTT (26.0-36.3) seconds D-Dimer, Quantitative (Less Than 230) ng/mL Sodium (133-145) mmol/L Potassium (3.5-5.0) mmol/L Chloride (101-111) mmol/L Carbon Dioxide (22-32) mmol/L Anion Gap (2-11) mmol/L BUN (6-24) mg/dL Creatinine (0.67-1.17) mg/dL Est GFR ( Amer) (>60) Est GFR (Non-Af Amer) (>60) BUN/Creatinine Ratio (8-20) Glucose (70-100) mg/dL Lactic Acid 0.9 (0.5-2.0) mmol/L Calcium (8.6-10.3) mg/dL Magnesium (1.9-2.7) mg/dL Total Bilirubin (0.2-1.0) mg/dL AST (13-39) U/L ALT (7-52) U/L Alkaline Phosphatase (34-104) U/L Total Creatine Kinase (10-223) U/L CK-MB (CK-2) (0.6-6.3) ng/mL Troponin I (<0.04) ng/mL C-Reactive Protein (< 5.00) mg/L B-Natriuretic Peptide 164 H ( - 100) pg/mL Total Protein (6.4-8.9) g/dL Albumin (3.2-5.2) g/dL Globulin (2-4) g/dL Albumin/Globulin Ratio (1-3) Lipase (11.0-82.0) U/L TSH (0.34-5.60) mcIU/mL Free T4 Total T3 Urine Color Yellow Urine Appearance Clear Urine pH 7.0 (5-9) Ur Specific [place] 1.013 (1.010-1.030) Urine Protein Negative (Negative) Urine Ketones 1+ H (Negative) Urine Blood 1+ H (Negative) Urine Nitrate Negative (Negative) Urine Bilirubin Negative (Negative) Urine Urobilinogen Negative (Negative) Ur Leukocyte Esterase Negative (Negative) Urine WBC (Auto) Absent (Absent) Urine RBC (Auto) 2+(6-10/hpf) H (Absent) Urine Bacteria Absent (Absent) Urine Glucose Negative (Negative) Assess/Plan/Problems-Billing Assessment: Mr. Soto is a 65 yo male with a PMH of HTN, GERD who presented to the ED on 07/20 with c/o dyspnea on exertion approx 6 days prior who was found to have a troponin of 0.69 consistent with ACS - Patient Problems (1) NSTEMI (non-ST elevated myocardial infarction) Comment: - Peak Trop 0.69 - s/p cardiac cath with Dr. Reyes - 3 vessel disease found - stent to LAD and circumflex. - continue Brillinta, ASA, statin, BB, - check HgA1C - check labs in am - BMP, CBC, magnesium (2) Hyperthyroidism Comment: - pt does not appear thyroid toxic. Spoke with Dr. Smith who recommended. thyroid peroxidase and stimulating antibodies, thyroid us, start Methimazole 10 mg tonight, then 10mg BID and f/u with him in the office next week. - (3) HTN (hypertension) Comment: - controlled. continue metoprolol (4) GERD (gastroesophageal reflux disease) Comment: - continue PPI (5) DVT prophylaxis Comment: lovenox (6) Full code status Status and Disposition: inpatient with NSTEMI. Plan for DC home tomorrow if stable.
[2016-07-21 17:24] LABS: Magnesium 1.8 mg/dL (1.9-2.7)
[2016-07-21] MEDS ORDERED: Methimazole TAB* 5 MG PO ONE (20:00)
[2016-07-21] MEDS ORDERED: Ticagrelor* 90 MG TAB PO SCH (21:00)
[2016-07-21] MEDS: Atorvastatin* 80 MG TAB PO SCH (23:24)
[2016-07-22 06:09] LABS: Hematocrit 32 % (42-52); Hemoglobin 10.8 g/dl (14.0-18.0); Mean Corpuscular HGB Conc 33 g/dl (31-36); Mean Corpuscular Hemoglobin 28 pg (27-31); Mean Corpuscular Volume 83 fL (80-94); Mean Platelet Volume 8 um3 (7.4-10.4); Red Blood Count 3.89 10^6/ul (4.0-5.4); Red Cell Distribution Width 13 % (10.5-15); White Blood Count 8.8 10^3/ul (3.5-10.8)
[2016-07-22 06:43] LABS: Calcium 8.9 mg/dL (8.6-10.3); EGFR African American 112.5 (>60); EGFR Non-African American 87.5 (>60); Magnesium 1.7 mg/dL (1.9-2.7); Potassium 3.9 mmol/L (3.5-5.0)
--- NOTE | 2016-07-22 07:50 | DCNOTE ---
Subjective Date of Service: 07/22/16 Interval History: patient offers no complaints. Denies CP or SOB. Pt dneies symptoms of anxiety, tremors, weight loss, hair loss, skin changes. Reviewed medications and discharge plans. pt states understanding of DC instructions Objective Active Medications: Aspirin (Aspirin Ec Low Dose*) 81 mg PO DAILY [facility] Last Admin: 07/21/16 08:27 Dose: 81 mg Atorvastatin Calcium (Lipitor*) 80 mg PO 2100 [facility] Last Admin: 07/21/16 23:24 Dose: 80 mg Sodium Chloride (Ns 0.9% 1000 Ml*) 1,000 mls @ 100 mls/hr IV .per rate [facility] Methimazole (Tapazole Tab*) 10 mg PO BID [facility] Metoprolol Tartrate (Lopressor Tab*) 25 mg PO BID [facility] Last Admin: 07/21/16 23:42 Dose: Not Given Morphine Sulfate (Morphine Inj (Syringe)*) 2 mg IV Q4H PRN PRN Reason: PAIN Nitroglycerin (Nitroglycerin Tab 0.4 Mg*) 0.4 mg SL Q5M PRN PRN Reason: ANGINA Omeprazole (Prilosec Cap*) 20 mg PO DAILY [facility] Last Admin: 07/21/16 10:15 Dose: Not Given Ondansetron HCl (Zofran Inj*) 4 mg IV Q4H PRN PRN Reason: NAUSEA/VOMITING Prasugrel (Effient (Nf)) 10 mg PO DAILY [facility] Vital Signs 07/22/16 07/22/16 07/22/16 01:00 01:30 02:00 Temperature Pulse Rate 58 57 65 Respiratory 19 19 18 Rate Blood Pressure 130/63 131/67 129/75 (mmHg) O2 Sat by Pulse 97 97 98 Oximetry 07/22/16 07/22/16 07/22/16 02:30 03:00 03:30 Temperature Pulse Rate 50 52 50 Respiratory 16 17 16 Rate Blood Pressure 128/52 112/54 105/65 (mmHg) O2 Sat by Pulse 96 97 97 Oximetry 07/22/16 04:00 Temperature 98.7 F Pulse Rate 51 Respiratory 16 Rate Blood Pressure 117/64 (mmHg) O2 Sat by Pulse 97 Oximetry Oxygen Devices in Use Now: None Appearance: 65 yo healthy appearing male A+O x3 in NAD Eyes: No Scleral Icterus, PERRLA Ears/Nose/Mouth/Throat: NL Teeth, Lips, Gums, Mucous Membranes Moist Neck: NL Appearance and Movements; NL JVP Respiratory: Symmetrical Chest Expansion and Respiratory Effort, Clear to Auscultation Cardiovascular: NL Sounds; No Murmurs; No JVD, RRR, No Edema Abdominal: NL Sounds; No Tenderness; No Distention Lymphatic: No Cervical Adenopathy Extremities: No Edema, No Clubbing, Cyanosis, - - right wrist bandage CD+I - no erythema Skin: No Rash or Ulcers, No Nodules or Sclerosis Neurological: Alert and Oriented x 3, NL Sensation, NL Gait, NL Muscle Strength and Tone Lines/Tubes/Other Access: Clean, Dry and Intact Peripheral IV Nutrition: Taking PO's Result Diagrams: 07/22/16 05:50 07/22/16 05:50 Additional Lab and Data: Lab Results 07/20/16 07/20/16 07/20/16 Range/Units 13:27 13:27 13:27 WBC 6.2 (3.5-10.8) 10^3/ul RBC 4.05 (4.0-5.4) 10^6/ul Hgb 11.4 L (14.0-18.0) g/dl Hct 34 L (42-52) % MCV 84 (80-94) fL MCH 28 (27-31) pg MCHC 34 (31-36) g/dl RDW 13 (10.5-15) % Plt Count 274 (150-450) 10^3/ul MPV 8 (7.4-10.4) um3 Neut % (Auto) 76.6 (38-83) % Lymph % (Auto) 13.4 L (25-47) % [place] % (Auto) 8.7 (1-9) % Eos % (Auto) 0.7 (0-6) % Baso % (Auto) 0.6 (0-2) % Absolute Neuts (auto) 4.8 (1.5-7.7) 10^3/ul Absolute Lymphs (auto) 0.8 L (1.0-4.8) 10^3/ul Absolute Monos (auto) 0.5 (0-0.8) 10^3/ul Absolute Eos (auto) 0 (0-0.6) 10^3/ul Absolute Basos (auto) 0 (0-0.2) 10^3/ul Absolute Nucleated RBC 0 10^3/ul Nucleated RBC % 0 ESR Pending INR (Anticoag Therapy) 1.04 (0.89-1.11) APTT 29.3 (26.0-36.3) seconds D-Dimer, Quantitative 230 (Less Than 230) ng/mL Sodium 137 (133-145) mmol/L Potassium 4.1 (3.5-5.0) mmol/L Chloride 104 (101-111) mmol/L Carbon Dioxide 28 (22-32) mmol/L Anion Gap 5 (2-11) mmol/L BUN 11 (6-24) mg/dL Creatinine 0.91 (0.67-1.17) mg/dL Est GFR ( Amer) 108.2 (>60) Est GFR (Non-Af Amer) 84.1 (>60) BUN/Creatinine Ratio 12.1 (8-20) Glucose 96 (70-100) mg/dL Lactic Acid (0.5-2.0) mmol/L Calcium 9.5 (8.6-10.3) mg/dL Magnesium 1.8 L (1.9-2.7) mg/dL Total Bilirubin 0.50 (0.2-1.0) mg/dL AST 15 (13-39) U/L ALT 21 (7-52) U/L Alkaline Phosphatase 70 (34-104) U/L Total Creatine Kinase 42 (10-223) U/L CK-MB (CK-2) 2.2 (0.6-6.3) ng/mL Troponin I 0.69 H* (<0.04) ng/mL C-Reactive Protein 3.99 (< 5.00) mg/L B-Natriuretic Peptide ( - 100) pg/mL Total Protein 7.1 (6.4-8.9) g/dL Albumin 3.6 (3.2-5.2) g/dL Globulin 3.5 (2-4) g/dL Albumin/Globulin Ratio 1.0 (1-3) Lipase 24 (11.0-82.0) U/L TSH < 0.03 L (0.34-5.60) mcIU/mL Free T4 Pending Total T3 Pending Urine Color Urine Appearance Urine pH (5-9) Ur Specific [place] (1.010-1.030) Urine Protein (Negative) Urine Ketones (Negative) Urine Blood (Negative) Urine Nitrate (Negative) Urine Bilirubin (Negative) Urine Urobilinogen (Negative) Ur Leukocyte Esterase (Negative) Urine WBC (Auto) (Absent) Urine RBC (Auto) (Absent) Urine Bacteria (Absent) Urine Glucose (Negative) 07/20/16 07/20/16 07/20/16 Range/Units 13:27 13:27 13:35 WBC (3.5-10.8) 10^3/ul RBC (4.0-5.4) 10^6/ul Hgb (14.0-18.0) g/dl Hct (42-52) % MCV (80-94) fL MCH (27-31) pg MCHC (31-36) g/dl RDW (10.5-15) % Plt Count (150-450) 10^3/ul MPV (7.4-10.4) um3 Neut % (Auto) (38-83) % Lymph % (Auto) (25-47) % [place] % (Auto) (1-9) % Eos % (Auto) (0-6) % Baso % (Auto) (0-2) % Absolute Neuts (auto) (1.5-7.7) 10^3/ul Absolute Lymphs (auto) (1.0-4.8) 10^3/ul Absolute Monos (auto) (0-0.8) 10^3/ul Absolute Eos (auto) (0-0.6) 10^3/ul Absolute Basos (auto) (0-0.2) 10^3/ul Absolute Nucleated RBC 10^3/ul Nucleated RBC % ESR INR (Anticoag Therapy) (0.89-1.11) APTT (26.0-36.3) seconds D-Dimer, Quantitative (Less Than 230) ng/mL Sodium (133-145) mmol/L Potassium (3.5-5.0) mmol/L Chloride (101-111) mmol/L Carbon Dioxide (22-32) mmol/L Anion Gap (2-11) mmol/L BUN (6-24) mg/dL Creatinine (0.67-1.17) mg/dL Est GFR ( Amer) (>60) Est GFR (Non-Af Amer) (>60) BUN/Creatinine Ratio (8-20) Glucose (70-100) mg/dL Lactic Acid 0.9 (0.5-2.0) mmol/L Calcium (8.6-10.3) mg/dL Magnesium (1.9-2.7) mg/dL Total Bilirubin (0.2-1.0) mg/dL AST (13-39) U/L ALT (7-52) U/L Alkaline Phosphatase (34-104) U/L Total Creatine Kinase (10-223) U/L CK-MB (CK-2) (0.6-6.3) ng/mL Troponin I (<0.04) ng/mL C-Reactive Protein (< 5.00) mg/L B-Natriuretic Peptide 164 H ( - 100) pg/mL Total Protein (6.4-8.9) g/dL Albumin (3.2-5.2) g/dL Globulin (2-4) g/dL Albumin/Globulin Ratio (1-3) Lipase (11.0-82.0) U/L TSH (0.34-5.60) mcIU/mL Free T4 Total T3 Urine Color Yellow Urine Appearance Clear Urine pH 7.0 (5-9) Ur Specific [place] 1.013 (1.010-1.030) Urine Protein Negative (Negative) Urine Ketones 1+ H (Negative) Urine Blood 1+ H (Negative) Urine Nitrate Negative (Negative) Urine Bilirubin Negative (Negative) Urine Urobilinogen Negative (Negative) Ur Leukocyte Esterase Negative (Negative) Urine WBC (Auto) Absent (Absent) Urine RBC (Auto) 2+(6-10/hpf) H (Absent) Urine Bacteria Absent (Absent) Urine Glucose Negative (Negative) Assess/Plan/Problems-Billing Assessment: Mr. Soto is a 65 yo male with a PMH of HTN, GERD who presented to the ED on 07/20 with c/o dyspnea on exertion approx 6 days prior who was found to have a troponin of 0.69 consistent with ACS - Patient Problems (1) NSTEMI (non-ST elevated myocardial infarction) Comment: - Peak Trop 0.69 - s/p cardiac cath with Dr. Reyes - 3 vessel disease - stent to LAD and circumflex. - continue Brillinta, ASA, statin, BB, - HgA1C pending - f/u with Dr. Reyes next week, then Dr. 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 Very small noted nodule on us - may or may not be significant. - thyroid peroxidase and stimulating antibodies - Methimazole 10mg BID and BB - f/u with Dr. Smith next week (3) HTN (hypertension) Comment: - controlled. continue metoprolol (4) GERD (gastroesophageal reflux disease) Comment: - continue PPI (5) DVT prophylaxis Comment: lovenox (6) Full code status Status and Disposition: inpatient with NSTEMI and hyperthyroidism. Plan for DC home today
[2016-07-22] MEDS ORDERED: Magnesium Sulfate 2 GM IV* 2 GM/50 ML BAG IVPB ONE (08:00)
[2016-07-22] MEDS: Omeprazole CAP* 20 MG PO SCH (08:20)
[2016-07-22] MEDS: Aspirin EC Low Dose* 81 MG TAB.EC PO SCH (08:20)
[2016-07-22] MEDS: Metoprolol Tartrate TAB* 25 MG PO SCH (08:21)
[2016-07-22] MEDS ORDERED: Methimazole TAB* 5 MG PO SCH (09:00)
[2016-07-22] MEDS ORDERED: CMCS: Prasugrel (NF) 10 MG PO SCH (09:00)
[2016-07-22 11:10] VITALS: BP 126/76
--- NOTE | 2016-07-22 11:13 | RAD ---
HISTORY: Hyperthyroidism COMPARISONS: None TECHNIQUE: Multiple transverse and longitudinal ultrasound images were obtained of the thyroid using grayscale and color Doppler imaging. FINDINGS: ISTHMUS: The isthmus measures 0.5 cm in caliber. The isthmus is heterogeneous in echotexture. RIGHT: The right thyroid measures 3.5 x 1.4 x 1.9 cm, for a volume of 2.9 cc. The right thyroid is heterogeneous in echotexture. In the right upper thyroid, there is a complex cystic nodule measuring 0.7 x 0.5 x 0.7 cm. This has smooth contours, without internal vascularity or microcalcification. There is ringdown artifact consistent with colloid. Based on the sonographic pattern, this is considered a very low suspicion nodule. . LEFT: The left thyroid measures 3.7 x 1.4 x 1.5 cm, for a volume of 4.2 cc. The left thyroid is heterogeneous in echotexture, without nodule or microcalcification. LYMPH NODES: There is no local lymphadenopathy. VESSELS: The vessels are unremarkable. OTHER: None IMPRESSION: 1. HETEROGENEOUS THYROID. 2. VERY LOW SUSPICION NODULE OF THE RIGHT UPPER THYROID MEASURING 0.7 CM IN SIZE. THE [employer] RECOMMENDS CONSIDERATION OF FINE-NEEDLE ASPIRATION OF VERY LOW SUSPICION NODULES GREATER THAN OR EQUAL TO 2 CM IN SIZE. OBSERVATION WITHOUT FINE-NEEDLE ASPIRATION IS ALSO A REASONABLE OPTION.
--- NOTE | 2016-07-23 14:52 | DS ---
DISCHARGE SUMMARY: DATE OF ADMISSION: 07/20/16 DATE OF DISCHARGE: 07/22/16 PROVIDER: Yulia Dennison NP ATTENDING PHYSICIAN: Dr. Garcia * (report dictated by Yulia Dennison NP) PRIMARY CARE PROVIDER: Dr. Rudd. CONSULTING CARDIOLOGISTS: 1. Dr. Beltran. 2. Dr. Reyes. REFERRING TO: Dr. Smith, bell attendant. PRIMARY DIAGNOSES: 1. Non-ST elevation myocardial infarction. 2. Hyperthyroidism. SECONDARY DIAGNOSES: 1. Gastroesophageal reflux disease. 2. Hypertension. 3. Localized prostate cancer, being followed closely by Urology. DISCHARGE MEDICATIONS: 1. Omeprazole 10 mg p.o. daily. 2. Brilinta 90 mg b.i.d. 3. Metoprolol 25 mg p.o. b.i.d. 4. Methimazole 10 mg p.o. b.i.d. 5. Lipitor 80 mg p.o. daily. 6. Atorvastatin 80 mg p.o. daily. 7. Aspirin EC low dose 81 mg p.o. daily. HISTORY OF PRESENT ILLNESS AND HOSPITAL COURSE: Please see history and physical by SHAYY Scott, for full admission details. In summary, this is a 65-year-old male with past medical history of GERD and hypertension, who presented to the emergency department on 07/20/16 with report of dyspnea on exertion. Please see history and physical for full details. The patient was admitted to the hospitalist service and on admission noted to have a troponin of 0.69. He was treated for acute coronary syndrome, initiated statin, aspirin , beta maryana, and a heparin drip on admission. Dr. Beltran, clean rice grader and reel tender, saw the patient on admission and asked Dr. Reyes to evaluate the patient for cardiac catheterization and which the patient underwent the following morning. The patient was found to have 3-vessel disease with occlusion in the LAD and circumflex which were both stented. On admission, he was also noted to have hyperthyroidism. The patient was started on a beta maryana. Dr. Smith, bell attendant, has spoken to the patient, was started on methimazole. He appears non-thyrotoxic. In discussing symptoms, the patient does not appear that he has any hyperthyroid symptoms. The patient underwent a thyroid ultrasound, which showed "heterogeneous thyroid. Very low-suspicion nodule of the right upper thyroid measuring 0.7 cm in size. The [place] [employer] recommends consideration of fine needle aspiration of very low- suspicion nodules greater than or equal to 2 cm in size. Observation without fine needle aspiration is also a reasonable option." The patient underwent a right wrist catheterization with Dr. Reyes. He has remained hemodynamically stable. No wrist pain, no hematoma noted. The patient reports he feels "great" and is ready for discharge home today. The patient has been ambulating around the unit without any dyspnea, chest pain. Plan is for the patient to follow up with Dr. Reyes next week and then follow with Dr. Beltran as a primary clean rice grader and reel tender, as well he is being referred to bell attendant, Dr. Smith, who will see the patient next week in the office. Please note that thyroid stimulating antibodies and thyroid peroxidase antibody have been sent and are pending. DISCHARGE PLAN: 1. Follow up with Dr. Rudd, 07/26/16, at 9 a.m. 2. Follow up with Dr. Reyes next week for right wrist check. 3. The patient is to make an appointment with Dr. Beltran to be seen in [address] Beltran is away next week. 4. Follow up with Dr. Ez Smith next week. The patient was instructed to make this appointment himself. 5. The patient has been given post cardiac catheterization and peripheral angiography discharge instructions. The patient states understanding. CONDITION ON DISCHARGE: Stable. TIME SPENT: Approximately 60 minutes was spent on this discharge. YULIA DENNISON NP CC: Dr. Rudd; Dr. Beltran * [id number]/[facility] #: [id number] [facility]
--- NOTE | 2016-07-23 22:09 | CATH ---
CC: Dr. Beltran; Dr. Rudd CATH REPORT: DATE OF CATH: 07/21/16 PRIMARY CARE DOCTOR: Dr. Rudd in [place]. YOUTH SUPPORT WORKER: Dr. Beltran. PROCEDURES: Right radial artery access, bilateral selective coronary cineangiography, left heart ca theterization, left ventriculography, stent placement circumflex 2.5 x 15 Xience CHADWICK, stent placemen t LAD 2.75 x 15 Xience CHADWICK. HISTORY: A 65-year-old male with non-ST elevation infarct. PROCEDURE ACCESS: Right radial artery sheath 6-F slender. DIAGNOSTIC CATHETERS: 5-F TIG 4, 5-F pigtail. GUIDING CATHETER: Circumflex and LAD, 6FLBU 3.5 wire 14 BMW. MEDICATIONS: 1. Subcu lidocaine. 2. IV versed. 3. IV fentanyl. 4. Heparin 3000 units. 4. Verapamil 3 mg. 5. Nitroglycerin 300 mcg IA, heparin 3000 units IV. 6. Brilinta 180 mg p.o. loading dose. 7. Heparin 2000 units IV. HEMODYNAMICS: Initial BP 144/77, LV 130/10-17, no aortic valve on gradient. After diagnostic angiography, circumflex intervention was performed on the culprit with placement of a 2.5 x 15 Xience drug-eluting stent at 12 atmospheres 30 seconds after predilatation as the stent would not cross primarily. The wire was then redirected into the LAD, again predilatation was requi red after which a 2.75 x 15 Xience drug-eluting stent was deployed 14 atmospheres, 30 seconds. ANGIOGRAPHY: Left main: The left main is relatively short, normal. LAD: The LAD is large, extends past the apex, the LAD has fairly heavy calcifications, it supplies a hfaea-az-svhgzekj first diagonal which has ostial 50% stenosis, was not treated because of small s ize. The LAD then has an 80% stenosis after which there is a large second diagonal, which is follow ed by a 30% LAD stenosis. The LAD has well-developed collaterals to the distal right coronary with filling of relatively small caliber PDA and several posterior laterals with reflux up the RCA to pro ximal to the acute margin. Circumflex: The circumflex is large, not dominant with a cxiak-qa-wzopfuni first marginal, then fol lowed by a large bifurcated distal marginal or posterolateral which bifurcates, the lower side branc h has a tubular 90% stenosis, that branch has VERN-2 flow, is the likely culprit. RCA: The RCA is large, dominant, is occluded a few centimeters from the origin with calcification, the occlusion point was probed briefly with a 14 BMW wire without any penetration at the occlusion p oint suggesting a OUTSIDE B2B SALES. The segment occlusion is relatively short. Distal RCA fills by left to righ t collaterals. LV gram: LV wall motion is normal, estimated LV EF 60%. After circumflex distal stent placement, there is no residual stenosis, nor encroachment of the side branch, flow is VERN-3. After LAD stent placement there is no residual stenosis, distal VERN-3 flow. CONCLUSION: 1. Three-vessel coronary artery disease with RCA OUTSIDE B2B SALES, culprit circumflex, excellent angiographic re sults with drug-eluting stent placement LAD and circumflex. The patient was left with an RCA OUTSIDE B2B SALES, w hich can be pursued in the future based on symptoms and ischemic burden. 2. Normal LV systolic function. 3. Normal left-sided hemodynamics. 4. Successful right radial artery access. [id number]/[facility] #: [id number]
== END 2016-07-22 13:30 | disposition home or self-care (01) | DRG 174 ==
LOC: ED 12:33 → MEDTELE 15:04 → ICU 07-21 15:06
PROVIDERS: ADMIT Physician Assistant; ATTEND Internal Medicine
PROC: 4A023N7 Measurement of Cardiac Sampling and Pressure, Left Heart, Percutaneous Approach (ICD-10-PCS; 2016-07-21)
PROC: B2151ZZ Fluoroscopy of Left Heart using Low Osmolar Contrast (ICD-10-PCS; 2016-07-21)
PROC: B2111ZZ Fluoroscopy of Multiple Coronary Arteries using Low Osmolar Contrast (ICD-10-PCS; 2016-07-21)
PROC: 027135Z Dilation of Coronary Artery, Two Arteries with Two Drug-eluting Intraluminal Devices, Percutaneous Approach (ICD-10-PCS; principal; 2016-07-21 14:15)
DX: I21.4 Non-ST elevation (NSTEMI) myocardial infarction (principal); C61 Malignant neoplasm of prostate; I07.1 Rheumatic tricuspid insufficiency; I25.10 Atherosclerotic heart disease of native coronary artery without angina pectoris; E05.90 Thyrotoxicosis, unspecified without thyrotoxic crisis or storm; K21.9 Gastro-esophageal reflux disease without esophagitis; I10 Essential (primary) hypertension; Z79.82 Long term (current) use of aspirin; Z79.02 Long term (current) use of antithrombotics/antiplatelets; Z88.6 Allergy status to analgesic agent; Z83.3 Family history of diabetes mellitus; Z82.3 Family history of stroke
CPT/HCPCS: 36415; 71020; 76536; 80048; 80053; 80061; 81003; 81015; 82550; 82553; 83036; 83605; 83690; 83735; 83880; 84439; 84443; 84445; 84479; 84481; 84484; 85025; 85045; 85379; 85610; 85652; 85730; 86140; 86376; 93005; 93306; 93458; 99283; A9270-GY; C1725; C1769; C1876; C1887; C9600-LD; C9601-LC; J0461; J1644; J1650; J2250; J3010; J3475

== ENCOUNTER 2016-09-10 10:32 | Emergency (ER) | payer BC ==
[2016-09-10 12:49] LABS: Hematocrit 40 % (42-52); Hemoglobin 13.4 g/dl (14.0-18.0); Mean Corpuscular HGB Conc 34 g/dl (31-36); Mean Corpuscular Hemoglobin 28 pg (27-31); Mean Corpuscular Volume 84 fL (80-94); Mean Platelet Volume 9 um3 (7.4-10.4); Red Blood Count 4.75 10^6/ul (4.0-5.4); Red Cell Distribution Width 16 % (10.5-15); White Blood Count 4.2 10^3/ul (3.5-10.8)
[2016-09-10 13:01] LABS: Albumin 4.1 g/dL (3.2-5.2); BUN/Creatinine Ratio 10.9 (8-20); C Reactive Protein 18.33 mg/L (< 5.00); Calcium 9.4 mg/dL (8.6-10.3); EGFR African American 95.9 (>60); EGFR Non-African American 74.6 (>60); Globulin 3.1 g/dL (2-4); Potassium 3.9 mmol/L (3.5-5.0); Total Bilirubin 0.5 mg/dL (0.2-1.0); Total Protein 7.2 g/dL (6.4-8.9)
[2016-09-10 13:02] LABS: Troponin I 0.01 ng/mL (<0.04)
[2016-09-10 16:29] VITALS: BP 112/73
--- NOTE | 2016-09-10 18:00 | ED ---
Vivienne Hinojosa Michael, scribed for Misbah Sánchez MD on 09/10/16 at 1208 . Complex/Multi-Sys Presentation - HPI Summary HPI Summary: 65 y/o male comes to the ED presenting with diaphoresis on his neck and chest that started this morning at 0645. The pt reports that he normally has a low heart rate, but this morning it was elevated to 79 bpm. He also c/o nasal drainage and a non-productive cough with green sputum that started one week ago , and these symptoms are alleviating. The pt denies fever and CP. The PMHx is significant for an FL in June 2016 that resulted in 2 stents being placed. He states that the diaphoresis occurred 2 weeks before him FL in June. - History Of Current Complaint Chief Complaint: EDGeneral Time Seen by Provider: 09/10/16 11:50 Hx Obtained From: Patient, Medical Records Onset/Duration: Sudden Onset, Lasting Hours, Still Present Timing: Constant Severity Currently: Moderate Severity Initially: Mild Location: Negative Associated Signs And Symptoms: Positive: Cough - productive, Diaphoresis, Other - nasal drainage.. Negative: Chest Pain, Fever - Allergies/Home Medications Allergies/Adverse Reactions: Allergies Allergy/AdvReac Type Severity Reaction Status Date / Time Codeine Allergy Unknown Unknown Verified 07/20/16 12:37 Reaction Details PMH/Surg Hx/FS Hx/Imm Hx Cardiovascular History: Reports: Hx Hypertension, Hx Myocardial Infarction Respiratory History: Denies: Hx Asthma GI History: Reports: Hx Gastroesophageal Reflux Disease History: Reports: Hx Benign Prostatic Hyperplasia, Other Problems/ Disorders - Born with only L kidney, R inguinal hernia Musculoskeletal History: Reports: Hx Orthopedic Injury - Hx bilateral shoulder dislocation Sensory History: Reports: Hx Contacts or Glasses Opthamlomology History: Reports: Hx Contacts or Glasses - Cancer History Cancer Type, Location and Year: Present: contained, in prostate Hx Chemotherapy: No Hx Radiation Therapy: No Hx Palliative Cancer Treatment: No - Surgical History Surgery Procedure, Year, and Place: inguianl hernia repair Hx Anesthesia Reactions: No Infectious Disease History: No Infectious Disease History: Denies: Traveled Outside the [place] in Last 30 Days - Family History Known Family History: Positive: Diabetes - Social History Occupation: Employed Full-time Lives: Alone Alcohol Use: Rare Substance Use Type: Reports: None Smoking Status (MU): Never Smoked Tobacco Review of Systems Positive: Skin Diaphoresis. Negative: Fever Positive: Nasal Discharge Negative: Chest Pain Positive: Cough All Other Systems Reviewed And Are Negative: Yes Physical Exam Triage Information Reviewed: Yes Vital Signs On Initial Exam: Initial Vitals Temp Pulse Resp BP Pulse Ox 98.6 F 69 15 125/70 98 09/10/16 10:41 09/10/16 10:41 09/10/16 10:41 09/10/16 10:41 09/10/16 10:41 Vital Signs Reviewed: Yes Appearance: Positive: Well-Appearing, No Pain Distress, Well-Nourished Skin: Positive: Warm, Skin Color Reflects Adequate Perfusion, Dry Head/Face: Positive: Normal Head/Face Inspection Eyes: Positive: Normal ENT: Positive: Normal ENT inspection Neck: Positive: Supple, Nontender Respiratory/Lung Sounds: Positive: Clear to Auscultation, Breath Sounds Present Cardiovascular: Positive: RRR Abdomen Description: Positive: Nontender, Soft Bowel Sounds: Positive: Present Musculoskeletal: Positive: Normal Neurological: Positive: Normal Psychiatric: Positive: Affect/Mood Appropriate Diagnostics - Vital Signs Vital Signs Temp Pulse Resp BP Pulse Ox 09/10/16 10:41 98.6 F 69 15 125/70 98 - Laboratory Lab Results: Lab Results 09/10/16 09/10/16 09/10/16 Range/Units 11:21 11:21 15:25 WBC 4.2 (3.5-10.8) 10^3/ul RBC 4.75 (4.0-5.4) 10^6/ul Hgb 13.4 L (14.0-18.0) g/dl Hct 40 L (42-52) % MCV 84 (80-94) fL MCH 28 (27-31) pg MCHC 34 (31-36) g/dl RDW 16 H (10.5-15) % Plt Count 146 L (150-450) 10^3/ul MPV 9 (7.4-10.4) um3 Neut % (Auto) 67.1 (38-83) % Lymph % (Auto) 14.9 L (25-47) % Mobile % (Auto) 17.3 H (1-9) % Eos % (Auto) 0.3 (0-6) % Baso % (Auto) 0.4 (0-2) % Absolute Neuts (auto) 2.8 (1.5-7.7) 10^3/ul Absolute Lymphs (auto) 0.6 L (1.0-4.8) 10^3/ul Absolute Monos (auto) 0.7 (0-0.8) 10^3/ul Absolute Eos (auto) 0 (0-0.6) 10^3/ul Absolute Basos (auto) 0 (0-0.2) 10^3/ul Absolute Nucleated RBC 0 10^3/ul Nucleated RBC % 0 Sodium 134 (133-145) mmol/L Potassium 3.9 (3.5-5.0) mmol/L Chloride 101 (101-111) mmol/L Carbon Dioxide 26 (22-32) mmol/L Anion Gap 7 (2-11) mmol/L BUN 11 (6-24) mg/dL Creatinine 1.01 (0.67-1.17) mg/dL Est GFR ( Amer) 95.9 (>60) Est GFR (Non-Af Amer) 74.6 (>60) BUN/Creatinine Ratio 10.9 (8-20) Glucose 100 (70-100) mg/dL Calcium 9.4 (8.6-10.3) mg/dL Total Bilirubin 0.50 (0.2-1.0) mg/dL AST 22 (13-39) U/L ALT 17 (7-52) U/L Alkaline Phosphatase 59 (34-104) U/L Troponin I 0.01 0.01 (<0.04) ng/mL C-Reactive Protein 18.33 H (< 5.00) mg/L Total Protein 7.2 (6.4-8.9) g/dL Albumin 4.1 (3.2-5.2) g/dL Globulin 3.1 (2-4) g/dL Albumin/Globulin Ratio 1.3 (1-3) Result Diagrams: 09/10/16 11:21 09/10/16 11:21 Lab Statement: Any lab studies that have been ordered have been reviewed, and results considered in the medical decision making process. - EKG EKG 1100 EKG Rhythm: Sinus Rhythm - 60 bpm EKG Interpretation: non specific st changes EKG Comparison: No Significant Change - compared to EKG on 07/22/16 Complex Multi-Symp Course/Dx Course Of Treatment: Jorge Soto presented to the ED mostly concerned that he had had an episode in the past of waking up with diaphoresis and then two weeks later he had a cardiac event and got stented. He has a URI right now and a wet cough in the ED and I think it is more likely that he defervesced from a small fever during the night. His W/U is normal and I D/C'd him with a recommendation for F/U. He is a patient of Dr. Rudd but he has a friend who is a patient of Dr. mills and he asked for Dr. Mills's number. - Diagnoses Provider Diagnoses: Diaphoresis Discharge - Discharge Plan Condition: Stable Disposition: HOME Referrals: Torsten Rudd MD [Primary Care Provider] - Additional Instructions: You should follow up with Dr. Rudd within the next 2-3 days. You can follow up with Dr. Mills if necessary. The documentation as recorded by the Vivienne jauregui Michael accurately reflects the service I personally performed and the decisions made by me, Misbah Sánchez MD.
== END 2016-09-10 16:32 | disposition home or self-care (01) ==
LOC: ED 10:32
DX: R61 Generalized hyperhidrosis (principal); R05 Cough
CPT/HCPCS: 36415; 80053; 84484; 85025; 86140; 93005; 99283

== ENCOUNTER 2017-06-14 06:20 | Day surgery (SDC) | payer BC ==
--- NOTE | 2017-06-05 14:39 | HP ---
CC: Lakhwinder Schneider MD; Bill Stewart MD * ADMISSION HISTORY AND PHYSICAL: DATE OF ADMISSION: 06/14/17 ATTENDING SURGEON: Nick Michael MD * (SHAYY Dickey, dictating). CHIEF COMPLAINT: Bilateral inguinal hernias (also left hydrocele). HISTORY OF PRESENT ILLNESS: This is a 66-year-old male who over the past year or so has noted gradual development of a bulge in the right groin accompanied by occasional discomfort or pain. He generally is pain free, but on occasion notes discomfort in the right groin following bowel movement. He otherwise is active and without any signs or symptoms to indicate incarceration or strangulation. He did undergo an open repair of right inguinal hernia as a teenager in 1971 and also for release of an undescended testicle which was atrophic. He has had no symptoms in the left inguinal region, but apparently does have a hydrocele on that side and is followed by Dr. Schneider. The patient was seen in the office by Dr. Michael on 05/29/17, at which time exam confirmed the presence of a right inguinal hernia, which was mildly tender to palpation, but reducible. In addition, a left inguinal hernia was noted on Valsalva as well as the aforementioned left hydrocele. Dr. Michael has discussed with him the indications for repair, the risks, benefits, and alternatives as well as the plan for approach and expected perioperative course. The patient was seen by Cardiology for preoperative clearance (see separate attached; the patient was instructed to continue his aspirin perioperatively, but to hold his Effient for 5 days preoperatively). The patient would like to proceed as scheduled with open repair of bilateral inguinal hernias with mesh (he will also undergo concurrent repair of left hydrocele by Dr. Schneider). PAST MEDICAL HISTORY: 1. Coronary artery disease (status post PTCA with stent placement x2 in June 2016 for non-ST elevation ACS; see separate attached from Dr. Reyes). 2. Hypertension. 3. Hyperlipidemia. 4. Prostate cancer (followed by Dr. Schneider with watchful waiting for a Hurst 6 prostate cancer). 5. 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 PAST SURGICAL HISTORY: 1. Right inguinal herniorrhaphy as noted above. 2. Angioplasty with stenting as noted above. CURRENT MEDICATIONS: 1. Lisinopril 10 mg once daily. 2. Metoprolol extended release 25 mg one-half tablet once daily. 3. Atorvastatin 80 mg once daily. 4. Aspirin 81 mg once daily (he will continue perioperatively). 5. Effient 10 mg daily (he will hold preoperatively, his last dose to be on ). 6. Multivitamin once daily. 7. Prevacid, dose not specified, once daily p.r.n. for GERD (uses infrequently) . DRUG ALLERGIES: CODEINE (nausea). FAMILY HISTORY: Negative for anesthesia problems, bleeding or clotting disorders. SOCIAL HISTORY: The patient lives alone. 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 He denies use of tobacco. Drinks alcohol infrequently (1 drink per month). He denies other recreational drug use. REVIEW OF SYSTEMS: General: He is just finishing with a recent URI, but as of today denies any fever, chills, or productive cough. Cardiovascular: He was seen recently by Cardiology for preoperative clearance (see attached). Respiratory: No current shortness of breath, cough, history of asthma, or COPD. GI: Occasional GERD symptoms, uses Prevacid p.r.n. No lower GI symptoms. Colonoscopy and EGD performed in 2013, both normal exams by the patient's report, was recommended 10- year followup. : Enlargement of prostate with a known Hurst 6 prostate cancer. Followed by Dr. Schneider. No current voiding issues. Nocturia x2. Endocrine: No diabetes or thyroid dysfunction. PHYSICAL EXAMINATION GENERAL: Well-nourished thin male, in no acute distress. VITAL SIGNS: Height 73 inches, weight 133 pounds. Blood pressure 130/72, pulse 66, respirations 16, temperature 97.9. HEENT: Pupils equal, round, and reactive. EOMs intact. No conjunctival pallor. Oropharynx: Mucous membranes moist. Teeth in good repair. No intraoral lesions. NECK: No lymphadenopathy in the cervical or supraclavicular regions. No thyromegaly or masses. LUNGS: Clear to auscultation. No rales or wheezes. HEART: Regular rate and rhythm. No murmur appreciated. ABDOMEN: Soft, nontender to palpation. No palpable masses or organomegaly. Well- healed right groin incision from prior herniorrhaphy. Otherwise, exam per Dr. Michael as noted above. EXTREMITIES: No edema. RECTAL: Not done. BACK: No spinous process or CVA tenderness. NEUROLOGIC: Grossly intact. SKIN: Warm and dry. No suspicious rashes or lesions. IMPRESSION: Bilateral inguinal hernias (and left hydrocele). PLAN: Open repair of bilateral inguinal hernias with mesh (with concurrent repair of left hydrocele by Dr. Schneider). SHAYY DICKEY [id number]/[facility] #: [id number] [facility]
[~2017-06-14 06:20] MED LIST: Buffered Lidocaine 0.9% SYRIN* 5 ML/SYR SYRINGE INTRADERM ONE; DiMENhydriNATE IV* 50 MG/ML VIAL IV PUSH PRN; Famotidine IV* 10 MG/ML 2 ML (20 mg) IV ONE; Morphine INJ* 2 MG/ML 1 ML CARPUJECT IV PRN; PROCHLORPERAZINE INJ 5 MG/ML 2 ML VIAL IV PRN; fentaNYL* 50 MCG/ML 2 ML VIAL (100 MCG VIAL) IV PRN; oxyCODONE/Acetamin 5/325 MG* TAB PO PRN
[2017-06-14] MEDS ORDERED: ceFAZolin 2 GM PREMIX (*) 2 GM/50 ML BAG IVPB ONE (07:05)
[2017-06-14] MEDS ORDERED: Buffered Lidocaine 0.9% SYRIN* 5 ML/SYR SYRINGE ONE (07:05)
[2017-06-14] MEDS ORDERED: Famotidine IV* 10 MG/ML 2 ML (20 mg) ONE (07:05)
[2017-06-14] MEDS ORDERED: Lidocaine 1% INJ* 10 MG/ML 30 ML SDV ONE (07:29)
[2017-06-14] MEDS ORDERED: Bupivacaine 0.5% SDV PF* 30 ML VIAL ONE (07:29)
[2017-06-14] MEDS ORDERED: fentaNYL* 50 MCG/ML 2 ML VIAL (100 MCG VIAL) ONE ×2 (07:37→11:34)
[2017-06-14] MEDS ORDERED: Midazolam* 1 MG/ML 10 ML VIAL (10 MG) ONE (07:37)
[2017-06-14] MEDS ORDERED: KETAMINE HCL* 50 MG/ML 10 ML VIAL ONE (07:50)
[2017-06-14] MEDS ORDERED: Glycopyrrolate IV* 0.2 MG/ML 1 ML VIAL ONE (10:00)
[2017-06-14] MEDS ORDERED: Dexamethasone IV* 4 MG/ML 1 ML (4 MG) ONE (10:00)
[2017-06-14] MEDS ORDERED: EPHEDrine (Pressors)* 50 MG/ML VIAL ONE (10:00)
[2017-06-14] MEDS ORDERED: Propofol* 10 MG/ML 20 ML BTL IV PUSH ONE (10:00)
[2017-06-14] MEDS ORDERED: Lidocaine 2% PF * 5 ML VIAL ONE (10:00)
[2017-06-14] MEDS ORDERED: Phenylephrine IV* 40 MCG/ML 10 ML SYRINGE ONE (10:00)
[2017-06-14] MEDS ORDERED: Ondansetron INJ* 2 MG/ML VIAL ONE (10:00)
[2017-06-14] MEDS ORDERED: Metoprolol Tartrate IV* 1 MG/ML 5 ML VIAL ONE (10:06)
--- NOTE | 2017-06-14 10:19 | BRIEFOPN ---
Brief Operative Note - Surgery Procedures: Procedures Pre-OP Diagnoses: bilateral inguinal hernia, recurrent right, Left hydrocele Post-op Diagnosis: same Procedure: open bilateral inguinal hernia repair with mesh, hydrocelectomy Surgeon: Cirilo Michael Asst: Jennifer Childthesia: Ga with LMA Newton EBL: minimal IVF: 1600cc crystalloid Specimen: none Drains: rowan at L scrotum
[2017-06-14] MEDS ORDERED: oxyCODONE/Acetamin 5/325 MG* TAB PO PRN (10:28)
[2017-06-14] MEDS ORDERED: oxyCODONE/Acetamin 5/325 MG* TAB ONE (11:34)
[2017-06-14 15:21] VITALS: BP 124/69
--- NOTE | 2017-06-15 04:01 | OP ---
CC: Dr. Bill Stewart; Dr. Michael * DATE OF OPERATION: 06/14/17 - [facility] DATE OF : 54 SURGEON: Lakhwinder Schneider MD ANESTHESIOLOGIST: Dr. Heard. ANESTHESIA: General. PRE-OP DIAGNOSES: 1. Left hydrocele. 2. Bilateral inguinal hernia. POST-OP DIAGNOSES: 1. Left hydrocele. 2. Bilateral inguinal hernia. OPERATIVE PROCEDURE: Left hydrocelectomy. COMPLICATIONS: None. BLOOD LOSS: Less than 50 cc. DRAINS: 1/4-inch Kristofer drain, left scrotum. INDICATIONS: Gera Soto is a 66-year-old gentleman with a longstanding history of a left hydrocele. He also has bilateral inguinal hernias and he would like to have simultaneous repair of the hydrocele and the hernia. I discussed the procedure in detail with him including possible risks of bleeding , infection, recurrence of the hydrocele (more likely following hernia repair due to division of lymphatics) and he understands and wishes to proceed as planned. POSTOPERATIVE CONDITION: Stable. DESCRIPTION OF PROCEDURE: After induction of general anesthesia, the patient was placed on the operating table in supine position. External genitalia and the lower abdomen were prepped and draped in the usual sterile fashion. The plan was that I would work on the left side to do the hydrocele repair while Dr. Michael did the right inguinal hernia repair and he will then do the left inguinal hernia repair after completion of the hydrocele. Transverse incision was made in the left hemiscrotum. The dartos was divided in the line of the incision. The tunica vaginalis was opened and about 150 cc of clear hydrocele fluid was drained. There were some extensive adhesions between the tunica vaginalis and the tunica albuginea in some parts of the testicle and these were sharply divided. Once this was done, the tunica was everted and oversewn using interrupted sutures of 3-0 Vicryl. The testicle was replaced back in its normal anatomic position. A 1/4-inch Kristofer drain was placed through a stab incision and the dependent part of the scrotum and anchored to the skin using 3-0 Prolene. Subcutaneous tissue was approximated using interrupted sutures of 3-0 Vicryl and skin was approximated using 3-0 chromic horizontal mattress sutures. Dry sterile dressings were applied. Dr. Michael was still working on the right inguinal hernia when I had completed my part of the procedure and the plan was for him to finish and work on the left inguinal hernia after that. [id number]/[facility] #: [id number] MTDD
== END 2017-06-14 15:24 | disposition home or self-care (01) ==
LOC: OR 06:20
PROVIDERS: ATTEND Surgery
DX: K40.21 Bilateral inguinal hernia, without obstruction or gangrene, recurrent (principal); N43.3 Hydrocele, unspecified; I25.10 Atherosclerotic heart disease of native coronary artery without angina pectoris; I10 Essential (primary) hypertension; Q60.0 Renal agenesis, unilateral; E78.5 Hyperlipidemia, unspecified; C61 Malignant neoplasm of prostate; Z95.5 Presence of coronary angioplasty implant and graft; Z79.82 Long term (current) use of aspirin
CPT/HCPCS: A9270-GY; C1781; J0690; J1100; J2250; J2405; J2704; J3010; J3490

== ENCOUNTER 2017-06-16 00:16 | Emergency (ER) | payer BC ==
[2017-06-16] MEDS ORDERED: Mineral Oil ENEMA* 1 BOTTLE PR ONE (02:11)
[2017-06-16] MEDS ORDERED: Sodium Phosphate ADULT ENEMA* 118 ml bottle ONE (02:38)
[2017-06-16] MEDS ORDERED: Sodium Phosphate ADULT ENEMA* 118 ml bottle PR ONE (02:47)
--- NOTE | 2017-06-16 03:54 | ED ---
Natan Hinojosa Tiffany, scribshalom for Ulises Casper on 06/16/17 at 0107 . GI/ HPI - HPI Summary HPI Summary: This patient is a 66 year old M presenting to [facility] with a chief complaint of urinary retention since six hours ago. The patient rates the pain 8/10 in severity. Symptoms aggravated by nothing. Symptoms alleviated by nothing. Patient reports constipation. Patient denies abdominal pain. The patient states that he had a bilateral hernia repaired two days ago. The patient also has one kidney. - History of Current Complaint Chief Complaint: EDUrogenitalProblems Time Seen by Provider: 06/16/17 00:30 Stated Complaint: NEEDS BLADDER DRAINED Hx Obtained From: Patient Onset/Duration: Started Hours Ago - 6 hours ago, Still Present Timing: Constant Current Severity: Severe Pain Intensity: 8 Associated Signs and Symptoms: Positive: Constipation. Negative: Abdominal Pain - Allergy/Home Medications Allergies/Adverse Reactions: Allergies Allergy/AdvReac Type Severity Reaction Status Date / Time Codeine AdvReac Unknown Nausea Verified 06/14/17 07:11 PMH/Surg Hx/FS Hx/Imm Hx Previously Healthy: No Cardiovascular History: Reports: Hx Coronary Artery Disease, Hx Hypertension, Hx Myocardial Infarction, Other Cardiovascular Problems/Disorders - hyperlipidemia Respiratory History: Denies: Hx Asthma GI History: Reports: Hx Gastroesophageal Reflux Disease - no longer on med History: Reports: Hx Benign Prostatic Hyperplasia, Other Problems/ Disorders - Born with only a Left kidney, prostate cancer Musculoskeletal History: Reports: Hx Orthopedic Injury - Hx bilateral shoulder dislocation Sensory History: Reports: Hx Contacts or Glasses - glasses Opthamlomology History: Reports: Hx Contacts or Glasses - glasses - Cancer History Cancer Type, Location and Year: Present: contained, in prostate Hx Chemotherapy: No Hx Radiation Therapy: No Hx Palliative Cancer Treatment: No - Surgical History Surgery Procedure, Year, and Place: inguianl hernia repair on 06/14/17 Hx Anesthesia Reactions: No Infectious Disease History: No Infectious Disease History: Denies: Traveled Outside the [place] in Last 30 Days - Family History Known Family History: Positive: Diabetes - Social History Alcohol Use: Rare Hx Substance Use: No Substance Use Type: Reports: None Hx Tobacco Use: No Smoking Status (MU): Never Smoked Tobacco Review of Systems Positive: Other - Constipation. Negative: Abdominal Pain Positive: other - Urinary retention All Other Systems Reviewed And Are Negative: Yes Physical Exam - Summary Physical Exam Summary: Appearance: Well appearing, no pain distress Skin: Bilateral inguinal scars and incisions present Reproductive: Scrotum is enlarged Head/face: normal Eyes: EOMI, ANA ENT: normal Neck: supple, non-tender Respiratory: CTA, breath sounds present Cardiovascular: RRR, pulses symmetrical Abdomen: non-tender, soft Bowel: present Musculoskeletal: normal, strength/ROM intact Neuro: normal, sensory motor intact, A&Ox3 Triage Information Reviewed: Yes Vital Signs On Initial Exam: Initial Vitals Temp Pulse Resp BP Pulse Ox 97.2 F 87 20 127/91 100 06/16/17 00:16 06/16/17 00:16 06/16/17 00:16 06/16/17 00:16 06/16/17 00:16 Vital Signs Reviewed: Yes Diagnostics - Vital Signs Vital Signs Temp Pulse Resp BP Pulse Ox 06/16/17 00:16 97.2 F 87 20 127/91 100 - Laboratory Lab Statement: Any lab studies that have been ordered have been reviewed, and results considered in the medical decision making process. - Radiology Abdomen X-Ray Radiology Interpretation Completed By: ED Physician - Full of stool GIGU Course/Dx - Course Course Of Treatment: This patient is a 66 year old M presenting to [facility] with a chief complaint of urinary retention since six hours ago. The patient states that he had a bilateral hernia repaired two days ago. Abdomen X-Ray reveals, per ED physician, full of stool. Bloodwork/UA obtained. In the ED course, the patient was given Enema. Patient will be discharged with follow up from urology. The patient is agreeable with this plan. - Diagnoses Differential Diagnoses - Male: Other - urinary retention, abd pain, constipation Provider Diagnoses: Left hydrocele, Urinary retention, Constipation, Status post bilateral hernia repair Discharge - Discharge Plan Condition: Stable Disposition: HOME Patient Education Materials: Constipation (ED), Urinary Retention in Men (ED), Hydrocele (ED), Inguinal Hernia (ED) Referrals: Bill Stewart MD [Primary Care Provider] - Lakhwinder Schneider MD [Medical Doctor] - 3 Days Additional Instructions: Follow up with Dr. Schneider (urology) in 3 days. Return to the Emergency Room if current symptoms worsen or if new symptoms develop. The documentation as recorded by the Natan jauregui Tiffany accurately reflects the service I personally performed and the decisions made by me, Ulises Casper.
[2017-06-16 04:37] VITALS: BP 140/68
--- NOTE | 2017-06-16 08:02 | RAD ---
HISTORY: Constipation COMPARISONS: None VIEWS: Frontal views of the abdomen. FINDINGS: BOWEL: There is a nonobstructive bowel gas pattern. There is a large amount of stool within the colon. CALCULI: There are no abnormal calculi. BONES AND SOFT TISSUES: Degenerative changes are noted along the spine. 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 OTHER FINDINGS: The lung bases are clear. There is no subphrenic gas. IMPRESSION: NONOBSTRUCTIVE BOWEL GAS PATTERN. LARGE AMOUNT OF STOOL THROUGHOUT THE COLON.
== END 2017-06-16 04:35 | disposition home or self-care (01) ==
LOC: ED 00:16
DX: N43.3 Hydrocele, unspecified (principal); R33.9 Retention of urine, unspecified; K59.00 Constipation, unspecified; Z98.890 Other specified postprocedural states; Z88.5 Allergy status to narcotic agent; I25.10 Atherosclerotic heart disease of native coronary artery without angina pectoris; I10 Essential (primary) hypertension; I25.2 Old myocardial infarction; E78.5 Hyperlipidemia, unspecified; Q60.0 Renal agenesis, unilateral
CPT/HCPCS: 74000; 99282; A9270-GY

== ENCOUNTER 2018-04-07 17:51 | Emergency (ER) | payer MEDICARE, OTHER ==
--- NOTE | 2018-04-07 20:31 | ED ---
Bite Injury/Animal - HPI Summary HPI Summary: The pt is a 67 y/o male presenting to [facility] c/o of bat exposure 11 days ago. The pt found a bat in his barn. He took it to the [facility] two days later, where it . He did not handle the bat directly. The animal tested got sent to [facility] and tested positive for rabies. The [facility] notified the pt yesterday afternoon and advised him to visit the ED. He reports a subjective fever and denies any other sx. The pt requests a rabies post-exposure prophylaxis. - History of Current Complaint Chief Complaint: EDGeneral Stated Complaint: EXPOSURE TO A BAT Time Seen by Provider: 04/07/18 19:11 Hx Obtained From: Patient Onset of Injury: Other: - The pt did not have any direct contact with the bat, just exposure 11 days ago. Severity Currently: None Pain Intensity: 0 Pain Scale Used: 0-10 Numeric Animal Available for Observation: No - Allergies/Home Medications Allergies/Adverse Reactions: Allergies Allergy/AdvReac Type Severity Reaction Status Date / Time codeine Allergy Nausea Verified 04/07/18 18:05 PMH/Surg Hx/FS Hx/Imm Hx Previously Healthy: No Cardiovascular History: Reports: Hx Coronary Artery Disease, Hx Hypertension, Hx Myocardial Infarction, Other Cardiovascular Problems/Disorders - hyperlipidemia Respiratory History: Denies: Hx Asthma GI History: Reports: Hx Gastroesophageal Reflux Disease - no longer on med History: Reports: Hx Benign Prostatic Hyperplasia, Other Problems/ Disorders - Born with only a Left kidney, prostate cancer Musculoskeletal History: Reports: Hx Orthopedic Injury - Hx bilateral shoulder dislocation Sensory History: Reports: Hx Contacts or Glasses - glasses Opthamlomology History: Reports: Hx Contacts or Glasses - glasses - Cancer History Cancer Type, Location and Year: Present: contained, in prostate Hx Chemotherapy: No Hx Radiation Therapy: No Hx Palliative Cancer Treatment: No - Surgical History Surgery Procedure, Year, and Place: inguianl hernia repair on 06/14/17 Hx Anesthesia Reactions: No Infectious Disease History: No Infectious Disease History: Denies: Traveled Outside the [place] in Last 30 Days - Family History Known Family History: Positive: Diabetes - Social History Occupation: Employed Full-time Lives: Alone Alcohol Use: Rare Hx Substance Use: No Substance Use Type: Reports: None Hx Tobacco Use: No Smoking Status (MU): Never Smoked Tobacco Review of Systems Constitutional: Other - Positive: Bat exposure Positive: Fever - Subjective fever Positive: no symptoms reported All Other Systems Reviewed And Are Negative: Yes Physical Exam - Summary Physical Exam Summary: Appearance: The patient is well-nourished in no acute distress and in no acute pain. Skin: The skin is warm and dry and skin color reflects adequate perfusion. HEENT: The head is normocephalic and atraumatic. The pupils are equal and reactive. The conjunctivae are clear and without drainage. Nares are patent and without drainage. Mouth reveals moist mucous membranes and the throat is without erythema and exudate. The external ears are intact. The ear canals are patent and without drainage. The tympanic membranes are intact. Neck: The neck is supple with full range of motion and non-tender. There are no carotid bruits. There is no neck vein distension. Respiratory: Chest is non-tender. Lungs are clear to auscultation and breath sounds are symmetrical and equal. Cardiovascular: Heart is regular rate and rhythm. There is no murmur or rub auscultated. There is no peripheral edema and pulses are symmetrical and equal. Abdomen: The abdomen is soft and non-tender. There are normal bowel sounds heard in all four quadrants and there is no organomegaly palpated. Musculoskeletal: There is no back tenderness noted. Extremities are non-tender with full range of motion. There is good capillary refill. There is no peripheral edema or calf tenderness elicited. Neurological: Patient is alert and oriented to person, place and time. The patient has symmetrical motor strength in all four extremities. Cranial nerves are grossly intact. Deep tendon reflexes are symmetrical and equal in all four extremities. Psychiatric: The patient has an appropriate affect and does not exhibit any anxiety or depression. Triage Information Reviewed: Yes Vital Signs On Initial Exam: Initial Vitals Temp Pulse Resp BP Pulse Ox 98.9 F 65 16 164/78 98 04/07/18 18:05 04/07/18 18:05 04/07/18 18:05 04/07/18 18:05 04/07/18 18:05 Vital Signs Reviewed: Yes Diagnostics - Vital Signs Vital Signs Temp Pulse Resp BP Pulse Ox 04/07/18 18:05 98.9 F 65 16 164/78 98 - Laboratory Lab Statement: Any lab studies that have been ordered have been reviewed, and results considered in the medical decision making process. Bite Injury Course/Dx - Course Course Of Treatment: Mr. Soto has had a low risk exposure to rabies and is clearly concerned. I am not able to give him much reassurance aside from prophylaxing him. He is convinced that he has a fever at 98.9 as his temp is usually 97. His flu swab is neg. - Diagnoses Provider Diagnosis: Rabies exposure Discharge - Sign-Out/Discharge Documenting (check all that apply): Patient Departure - DC - Discharge Plan Condition: Stable Disposition: HOME Patient Education Materials: Rabies Vaccine (ED) Referrals: Bill Stewart MD [Primary Care Provider] - 2 Days Additional Instructions: Follow up with your PCP in 2 days Return to ED for any new or worsening symptoms - Billing Disposition and Condition Condition: STABLE Disposition: Home - Attestation Statements Document Initiated by Hiramibe: Yes Documenting Scribe: Araceli Etienne Provider For Whom Twan is Documenting (Include Credential): Dr. Misbah Sánchez MD Scribe Attestation: IAraceli, scribed for Dr. Misbah Sánchez MD on 04/08/18 at 1100. Scribe Documentation Reviewed: Yes Provider Attestation: The documentation as recorded by the hiramibeAraceli accurately reflects the service I personally performed and the decisions made by me, Dr. Misbah Sánchez MD
[2018-04-07] MEDS ORDERED: Rabies Immune Globulin 10 ML* 150 UNIT/ML VIAL (KEDRAB) IM ONE (21:34)
[2018-04-07] MEDS ORDERED: Rabies VIRUS VACCINE (Imovax)* 2.5 UNIT/ML 1 ML IM ONE (21:34)
[2018-04-07] MEDS ORDERED: Rabies Immune Globulin 2 ML* 150 UNITS/ML VIAL (KEDRAB) IM ONE (23:45)
[2018-04-08 00:11] VITALS: BP 166/82
== END 2018-04-08 00:29 | disposition home or self-care (01) ==
LOC: ED 17:51
DX: Z20.3 Contact with and (suspected) exposure to rabies (principal); Z23 Encounter for immunization; Z88.5 Allergy status to narcotic agent
CPT/HCPCS: 90471; 96372; 99281

== ENCOUNTER → 2018-12-06 02:40 | Emergency (ER) | payer MEDICARE ==
[~2018-12-06 02:40] MED LIST changes: +Acetaminophen TAB* 325 MG PO ONE; -Buffered Lidocaine 0.9% SYRIN* 5 ML/SYR SYRINGE INTRADERM ONE; -DiMENhydriNATE IV* 50 MG/ML VIAL IV PUSH PRN; -Famotidine IV* 10 MG/ML 2 ML (20 mg) IV ONE; +Ketorolac INJ* 30 MG/ML 1 ML VIAL IM ONE; -Morphine INJ* 2 MG/ML 1 ML CARPUJECT IV PRN; -PROCHLORPERAZINE INJ 5 MG/ML 2 ML VIAL IV PRN; -fentaNYL* 50 MCG/ML 2 ML VIAL (100 MCG VIAL) IV PRN; -oxyCODONE/Acetamin 5/325 MG* TAB PO PRN
--- OUTSIDE RECORDS SUMMARY | 2018-12-06 02:52 | XMS REPORT | Continuity of Care Document ---
:1950 External Reference #:[id number] Author Name Rudi Beckie Care Team Providers Name Role Phone Bill Nelson MD Primary Care Physician Unavailable Payers Date Identification Numbers Payment Provider Subscriber Policy Number: [id number] [employer] Leonor Jon PayID: [id number] [address] [place] [address] Problems Active Problems Provider Date Coronary atherosclerosis Jyoti Beltran M.D. Onset: 08/23/2016 Pure hypercholesterolemia Jyoti Beltran M.D. Onset: 08/23/2016 Essential hypertension Jyoti Beltran M.D. Onset: 08/23/2016 Malignant tumor of prostate Bill Nelson M.D.,[facility] Onset: 01/11/2017 Note: Cooper 6, 2013, watchful waiting Unilateral agenesis of kidney Bill Nelson M.D.,[facility] Onset: 07/18/2017 Note: RIGHT Impaired fasting glycaemia Bill Nelson M.D.,[facility] Onset: 07/18/2017 Inactive Problems Subclinical hyperthyroidism Bill Nelson M.D.,[facility] Onset: 01/11/2017 Inactive: 07/18/2017 Resolved Problems Acute subendocardial infarction Mary Reyes MD, [facility], [facility] Onset: 06/2016 Resolved: 01/11/2017 Family History Date Family Member(s) Observation Comments Father Cerebrovascular Accident ? 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 Occupation Retired [employer] P[employer] at [employer] Tobacco Use Start: Unknown Never Smoked Cigarettes Smoking Status Reviewed: 11/23/18 Never Smoked Cigarettes ETOH Use 07/18/2017 Rarely consumes alcohol Tobacco Use Start: Unknown Patient has never smoked Recreational Drug Use Denies Drug Use Exercise Type/Frequency 01/11/2017 Exercises sporadically Allergies, Adverse Reactions, Alerts Active Allergies Reaction Severity Comments Date Codeine Nausea 07/27/2016 Medications Active Medications SIG Qnty Indications Ordering Date Provider Shingrix 0.5 milliliters 2units Bill Molina 06/25/2018 50mcg/0.5ML intramuscular now Adele Nelson,FACP Suspension Rec and 2-3 months later repeat Clopidogrel 1 by mouth every day 90tabs Jyoti Beltran, 06/11/2018 Bisulfate M.D. 75mg Tablets Atorvastatin Calcium 1 by mouth every day 90tabs Bill Molina 09/05/2017 Adele Nelson,FACP 40mg Tablets Lisinopril 1 by mouth every day 90tabs I21.4 Jyoti Beltran, 10/27/2016 10mg M.D. Tablets Metoprolol Succinate 1/2 tab by mouth 45tabs Jyoti Beltran, 08/23/2016 ER every day M.D. 25mg Tablets ER 24HR Aspirin 1 by mouth every day Unknown 81mg Tablets DR Brian Suazo 1 by mouth every day Unknown Tablets History Medications Plavix 1 by mouth every 30tabs Jyoti Beltran, 12/06/2017 - 75mg Tablets day M.D. 09/20/2018 Prilosec OTC 1 by mouth every 30tabs D50.9 Bill Molina 07/18/2017 - 20mg day ( taken Adele Nelson,FACP 06/25/[address] swift per patient) Oxycodone-Acetaminop 1--2 tab by mouth 14tabs Shima Ma, 2016 - hen every 4- 6 hours 12/15/2017 5-325mg Tablets as needed for pain Lisinopril 2 by mouth every 90tabs I21.4 Jyoti Ruby, 07/27/2016 - 5mg day M.D. 10/27/2016 Tablets Brilinta 1 tab by mouth Unknown - 90mg Tablets twice a day 08/01/2016 Methimazole 1 tab po bid Unknown - 10mg 08/22/2016 Tablets Atorvastatin Calcium 1 by mouth every 90tabs Jyoti Beltran, - day M.D. 09/05/2017 80mg Tablets Metoprolol Tartrate 1/2 tab by mouth 30tabs Jyoti Beltran, - twice a day M.D. 08/23/2016 25mg Tablets Effient 1 by mouth every 30tabs Jyoti Beltran, - 10mg Tablets day (pt states he M.D. 12/15/2017 is not taking) Medications Administered in Office Medication SIG Qnty Indications Ordering Provider Date Technetium TC 99M Nick Corrales, DO [facility] 11/13/2018 Tetrofosmin, Per Unit Dose Up To 40 Millicuries Injection Technetium TC 99M Nick Corrales, DO [facility] 11/13/2018 Tetrofosmin, Per Unit Dose Up To 40 Millicuries Injection Immunizations CPT Code Status Date Vaccine Reaction Lot # [id number] Given 05/29/2018 Influenza Virus Vaccine, Quadrivalent, Split, Preservative Free [id number] Given 08/11/2017 Pneumococcal Conjugate Vaccine 13 Valent For Intramuscular Use [id number] Given 01/11/2017 Tdap - no immediate reaction [id number] Tetanus/Diptheria/Acellular noted pt tolerated well Pertussis .. hh Vital Signs Date Vital Result Comment 11/23/2018 9:27am Height 73 inches 6'1" Weight 157.38 lb no shoes Heart Rate 58 /min ule BP Systolic Sitting 124 mmHg ule reg cuff BP Diastolic Sitting 78 mmHg ule reg cuff BP Systolic Standing 116 mmHg ule reg cuff BP Diastolic Standing 78 mmHg ule reg cuff BMI (Body Mass Index) 20.8 kg/m2 Ejection Fraction REF 57% 11/13/18 Nuclear stress test 09/21/2018 10:27am Height 73 inches 6'1" Weight 158.12 lb Heart Rate 58 /min irregular BP Systolic Sitting 146 mmHg ule reg cuff BP Diastolic Sitting 80 mmHg ule reg cuff BP Systolic Standing 140 mmHg ule reg cuff BP Diastolic Standing 80 mmHg ule reg cuff BMI (Body Mass Index) 20.9 kg/m2 Ejection Fraction 60-65% 05/11/17 echo 06/25/2018 2:21pm Height 73 inches 6'1" Weight 158.00 lb Heart Rate 63 /min BP Systolic Sitting 128 mmHg BP Diastolic Sitting 70 mmHg Body Temperature 96.7 F O2 % BldC Oximetry 97 % BMI (Body Mass Index) 20.8 kg/m2 01/30/2018 9:46am Height 73 inches 6'1" Weight 153.50 lb without shoes Heart Rate 66 /min BP Systolic Sitting 136 mmHg Lue reg cuff BP Diastolic Sitting 70 mmHg Lue reg cuff BP Systolic Standing 130 mmHg Lue reg cuff BP Diastolic Standing 76 mmHg Lue reg cuff Respiratory Rate 16 /min BMI (Body Mass Index) 20.2 kg/m2 Ejection Fraction 60-65% date 05/11/17 ECHO 12/15/2017 9:46am Height 73 inches 6'1" Weight 154.00 lb Heart Rate 68 /min BP Systolic Sitting 148 mmHg BP Diastolic Sitting 72 mmHg BP Systolic Recheck 148 mmHg BP Diastolic Recheck 82 mmHg Body Temperature 97.4 F O2 % BldC Oximetry 97 % BMI (Body Mass Index) 20.3 kg/m2 07/18/2017 10:35am Height 73 inches 6'1" Weight 155.50 lb Heart Rate 68 /min BP Systolic 110 mmHg BP Diastolic 62 mmHg O2 % BldC Oximetry 97 % BMI (Body Mass Index) 20.5 kg/m2 06/22/2017 10:43am Heart Rate 68 /min BP Systolic 120 mmHg BP Diastolic 74 mmHg Respiratory Rate 16 /min Body Temperature 96.7 F 06/05/2017 10:28am Height 73 inches 6'1" Weight 153.00 lb Heart Rate 66 /min BP Systolic Sitting 130 mmHg BP Diastolic Sitting 72 mmHg Respiratory Rate 16 /min Body Temperature 97.9 F BMI (Body Mass Index) 20.2 kg/m2 05/31/2017 3:54pm Height 71 inches 5'11" Weight 153.12 lb Heart Rate 60 /min BP Systolic Sitting 154 mmHg LA, reg BP Diastolic Sitting 72 mmHg LA, reg BP Systolic Standing 138 mmHg LA, reg BP Diastolic Standing 68 mmHg LA, reg BMI (Body Mass Index) 21.4 kg/m2 Ejection Fraction 60%-65% 05/11/17 05/29/2017 10:52am Height 71 inches 5'11" Weight 153.00 lb Heart Rate 60 /min BP Systolic 114 mmHg BP Diastolic 70 mmHg Respiratory Rate 16 /min Body Temperature 97.1 F BMI (Body Mass Index) 21.3 kg/m2 03/16/2017 4:50pm Height 71 inches 5'11" Weight 153.00 lb without shoes Heart Rate 50 /min BP Systolic Sitting 130 mmHg Lue reg cuff BP Diastolic Sitting 60 mmHg Lue reg cuff BP Systolic Standing 114 mmHg Lue reg cuff BP Diastolic Standing 70 mmHg Lue reg cuff Respiratory Rate 16 /min BMI (Body Mass Index) 21.3 kg/m2 Ejection Fraction 60-65% date 07/20/16 ECHO 01/19/2017 10:19am Weight 156.00 lb Heart Rate 64 /min BP Systolic Sitting 138 mmHg BP Diastolic Sitting 72 mmHg Body Temperature 97.2 F O2 % BldC Oximetry 98 % 01/11/2017 9:05am Height 69 inches 5'9" Weight 153.00 lb Heart Rate 58 /min BP Systolic 120 mmHg BP Diastolic 70 mmHg O2 % BldC Oximetry 98 % BMI (Body Mass Index) 22.6 kg/m2 09/27/2016 8:55am Height 72 inches 6'0" Weight 159.00 lb no shoes Heart Rate 62 /min BP Systolic Sitting 150 mmHg Lue reg cuff BP Diastolic Sitting 86 mmHg Lue reg cuff BP Systolic Standing 144 mmHg Lue reg cuff BP Diastolic Standing 82 mmHg Lue reg cuff Respiratory Rate 15 /min BMI (Body Mass Index) 21.6 kg/m2 Ejection Fraction 60-65% 07/20/2016-echo 08/23/2016 3:53pm Height 72 inches 6'0" Heart Rate 64 /min BP Systolic 128 mmHg BP Diastolic 70 mmHg BP Systolic Sitting 138 mmHg Lue reg cuff BP Diastolic Sitting 74 mmHg Lue reg cuff BP Systolic Standing 134 mmHg Lue reg cuff BP Diastolic Standing 70 mmHg Lue reg cuff Ejection Fraction 60-65% date 07/20/16 ECHO 07/27/2016 10:13am Height 72 inches 6'0" Weight 158.00 lb Heart Rate 50 /min 52 BP Systolic Sitting 122 mmHg left arm, reg cuff BP Diastolic Sitting 74 mmHg left arm, reg cuff BP Systolic Standing 120 mmHg left arm, reg cuff BP Diastolic Standing 74 mmHg left arm, reg cuff Respiratory Rate 16 /min BMI (Body Mass Index) 21.4 kg/m2 Ejection Fraction 60-65% 07/20/16 Results Test Date Facility Test Result H/L Range Note Lipid Profile 07/10/2018 [facility] Triglycerides 61 mg/dL 1 (Trig/Chol/HDL) [address] [place] [address] [phone] Cholesterol 146 mg/dL 2 HDL Cholesterol 72.5 mg/dL 3 LDL Cholesterol 61 mg/dL 4 CBC Auto Diff 07/10/2018 [facility] White Blood 5.0 10^3/uL N 3.5-10.[address] [place] [address] [phone] Red Blood Count 4.36 10^6/uL N 4.00-5.40 Hemoglobin 13.0 g/dL Low 14.0-18.0 Hematocrit 38 % Low 42-52 Mean Corpuscular Volume 88 fL N 80-94 Mean Corpuscular Hemoglobin 30 pg N 27-31 Mean Corpuscular HGB Conc 34 g/dL N 31-36 Red Cell Distribution Width 14 % N 10.5-15 Platelet Count 165 10^3/uL N 150-450 Mean Platelet Volume 8.4 fL N 7.4-10.4 Abs Neutrophils 2.6 10^3/uL N 1.5-7.7 Abs Lymphocytes 1.4 10^3/uL N 1.0-4.8 Abs Monocytes 0.6 10^3/uL N 0-0.8 Abs Eosinophils 0.3 10^3/uL N 0-0.6 Abs Basophils 0 10^3/uL N 0-0.2 Abs Nucleated RBC 0 10^3/uL Granulocyte % 52.3 % Lymphocyte % 28.7 % Monocyte % 12.6 % Eosinophil % 5.6 % Basophil % 0.8 % Nucleated Red Blood Cells % 0 Basic Metabolic Panel 07/10/2018 [facility] Sodium 140 mmol/L N 135-[address] [place] [address] [phone] Potassium 4.3 mmol/L N 3.5-5.0 Chloride 104 mmol/L N 101-111 Co2 Carbon Dioxide 30 mmol/L N 22-32 Anion Gap 6 mmol/L N 2-11 Glucose 83 mg/dL N 70-100 Blood Urea Nitrogen 16 mg/dL N 6-24 Creatinine 1.10 mg/dL N 0.67-1.17 BUN/Creatinine Ratio 14.5 N 8-20 Calcium 9.5 mg/dL N 8.6-10.3 Egfr Non- 67.2 >60 Egfr 81.3 >60 5 Laboratory test 07/10/2018 [facility] Ast (Sgot) 19 U/L N 13- 39 [address] [place] [address] [phone] Iron & Iron Binding 07/10/2018 [facility] Iron 86 g/dL N 50- [address] [place] [address] [phone] Unsaturated Iron Binding < 276 g/dL Total Iron Binding Capacity 291 g/dL N 250-450 Transferrin 208 mg/dL N 203-362 % Iron Saturation 30 % N 15-55 Order 06/25/2018 [facility] In-House EKG <pending> Rapid Influenza A 04/07/2018 [facility] Influenza A NEGATIVE Negative 7 & B Molecular [address] [place] [address] [phone] Influenza B Molecular NEGATIVE Negative Laboratory test 04/07/2018 [facility] Rapid Influenza SEE RESULT [address] [place] [address] [phone] CBC Auto Diff 01/17/2018 [facility] White Blood 5.3 10^3/uL N 3.5-[address] Count [address] [place] [address] [phone] Red Blood Count 4.08 10^6/uL N 4.00-5.40 Hemoglobin 12.3 g/dL Low 14.0-18.0 Hematocrit 36 % Low 42-52 Mean Corpuscular Volume 88 fL N 80-94 Mean Corpuscular Hemoglobin 30 pg N 27-31 Mean Corpuscular HGB Conc 34 g/dL N 31-36 Red Cell Distribution Width 13 % N 10.5-15 Platelet Count 200 10^3/uL N 150-450 Mean Platelet Volume 8.3 um3 N 7.4-10.4 Abs Neutrophils 3.1 10^3/uL N 1.5-7.7 Abs Lymphocytes 1.5 10^3/uL N 1.0-4.8 Abs Monocytes 0.5 10^3/uL N 0-0.8 Abs Eosinophils 0.2 10^3/uL N 0-0.6 Abs Basophils 0.1 10^3/uL N 0-0.2 Abs Nucleated RBC 0 10^3/uL Granulocyte % 57.8 % N 38-83 Lymphocyte % 27.4 % N 25-47 Monocyte % 9.9 % High 0-7 Eosinophil % 3.9 % N 0-6 Basophil % 1.0 % N 0-2 Nucleated Red Blood Cells % 0.1 Laboratory test 01/17/2018 [facility] PSA Diagnostic 2.617 ng/ mL 0-4.0 [address] [place] [address] [phone] Basic Metabolic 01/17/2018 [facility] Sodium 141 mmol/L N 135- 145 Panel [address] [place] [address] [phone] Potassium 4.2 mmol/L N 3.5-5.0 Chloride 106 mmol/L N 101-111 Co2 Carbon Dioxide 29 mmol/L N 22-32 Anion Gap 6 mmol/L N 2-11 Glucose 81 mg/dL N 70-100 Blood Urea Nitrogen 18 mg/dL N 6-24 Creatinine 1.07 mg/dL N 0.67-1.17 BUN/Creatinine Ratio 16.8 N 8-20 Calcium 9.2 mg/dL N 8.6-10.3 Egfr Non- 69.4 >60 Egfr 83.9 >60 10 Lipid Profile 11/15/2017 [facility] Triglycerides 75 mg/dL 11 (Trig/Chol/HDL) [address] [place] [address] [phone] Cholesterol 152 mg/dL 12 HDL Cholesterol 66.8 mg/dL 13 LDL Cholesterol 70 mg/dL 14 CBC Auto Diff 08/09/2017 [facility] White Blood 4.8 10^3/uL N 3.5-10.[address] [place] [address] [phone] Red Blood Count 4.16 10^6/uL N 4.0-5.4 Hemoglobin 12.4 g/dL Low 14.0-18.0 Hematocrit 37 % Low 42-52 Mean Corpuscular Volume 88 fL N 80-94 Mean Corpuscular Hemoglobin 30 pg N 27-31 Mean Corpuscular HGB Conc 34 g/dL N 31-36 Red Cell Distribution Width 14 % N 10.5-15 Platelet Count 175 10^3/uL N 150-450 Mean Platelet Volume 9 um3 N 7.4-10.4 Abs Neutrophils 2.4 10^3/uL N 1.5-7.7 Abs Lymphocytes 1.6 10^3/uL N 1.0-4.8 Abs Monocytes 0.5 10^3/uL N 0-0.8 Abs Eosinophils 0.2 10^3/uL N 0-0.6 Abs Basophils 0 10^3/uL N 0-0.2 Abs Nucleated RBC 0 10^3/uL Granulocyte % 50.8 % N 38-83 Lymphocyte % 33.3 % N 25-47 Monocyte % 10.1 % High 1-9 Eosinophil % 4.8 % N 0-6 Basophil % 1.0 % N 0-2 Nucleated Red Blood Cells % 0.1 Iron & Iron Binding 08/09/2017 [facility] Iron 86 g/dL N 50- 212 [address] [place] [address] [phone] Unsaturated Iron Binding 191 g/dL Total Iron Binding Capacity 277 g/dL N 250-450 % Iron Saturation 31 % N 15-55 Laboratory test 08/09/2017 [facility] Ferritin 27.7 ng/mL N 24 -336 [address] [place] [address] [phone] Erythrocyte Sed Rate 9 mm/Hr N 0-20 16 Nuclear AB (Marily) By Ifa Igg <1:80 (Negative) 17 Lipid Profile 08/09/2017 [facility] Triglycerides 70 mg/dL 18 (Trig/Chol/HDL) [facility] [place] [address] [phone] Cholesterol 131 mg/dL 19 HDL Cholesterol 60.5 mg/dL 20 LDL Cholesterol 57 mg/dL 21 Laboratory test 08/09/2017 [facility] Hemoglobin A1c 5.5 % N 4.0-5.6 22 finding 101 [facility] (Glyco HGB) [place] [address] [phone] TSH (Thyroid Stim Horm) 4.98 mcIU/mL N 0.34-5.60 23 Basic Metabolic Panel 08/09/2017 [facility] Sodium 137 mmol/L N 133-145 [address] [place] [address] [phone] Potassium 4.3 mmol/L N 3.5-5.0 Chloride 105 mmol/L N 101-111 Co2 Carbon Dioxide 30 mmol/L N 22-32 Anion Gap 2 mmol/L N 2-11 Glucose 92 mg/dL N 70-100 Blood Urea Nitrogen 23 mg/dL N 6-24 Creatinine 1.13 mg/dL N 0.67-1.17 BUN/Creatinine Ratio 20.4 High 8-20 Calcium 9.3 mg/dL N 8.6-10.3 Egfr Non- 65.3 >60 Egfr 84.0 >60 24 Laboratory test 05/12/2017 [facility] PSA Screening 1.941 ng/mL 0-4.0 25 finding [address] [place] [address] [phone] Basic Metabolic 03/14/2017 [facility] Sodium 138 mmol/L N 133- 145 Panel [address] [place] [address] [phone] Potassium 4.2 mmol/L N 3.5-5.0 Chloride 103 mmol/L N 101-111 Co2 Carbon Dioxide 28 mmol/L N 22-32 Anion Gap 7 mmol/L N 2-11 Glucose 103 mg/dL High 70-100 Blood Urea Nitrogen 20 mg/dL N 6-24 Creatinine 1.15 mg/dL N 0.67-1.17 BUN/Creatinine Ratio 17.4 N 8-20 Calcium 9.4 mg/dL N 8.6-10.3 Egfr Non- 64.0 N >60 Egfr 82.3 N >60 26 Laboratory 03/14/2017 [facility] Hepatitis C Nonreactive N Nonreactive 27 test finding [address] [facility] [place] [address] [phone] Lipid Profile 03/14/2017 [facility] Triglycerides 66 mg/dL N 28 (Trig/Chol/HD [address] [facility] L) [place] [address] [phone] Cholesterol 140 mg/dL N 29 HDL Cholesterol 66.6 mg/dL N 30 LDL Cholesterol 60 mg/dL N 31 Laboratory test 03/14/2017 [facility] D Dimer < 200 N Less 32 finding 101 [facility] Quantitative ng/mL Than [address] [place] [address] [phone] Laboratory test 09/21/2016 [facility] Ast (Sgot) 19 U/L N 13- [address] [place] [address] [phone] Lipid Profile 09/21/2016 [facility] Triglycerides 83 mg/dL N 33 (Trig/Chol/HDL) [address] [place] [address] [phone] Cholesterol 128 mg/dL N 34 HDL Cholesterol 46.4 mg/dL N 35 LDL Cholesterol 65 mg/dL N 36 1 Desirable: <150 Borderline High: 150-199 High: 200-499 Very High: >500 2 Desirable: <200 Borderline High: 200-239 High: >239 3 Low: <40 Desirable: 40-60 High: >60 4 Desirable: <100 Near Optimal: 100-129 Borderline High: 130-159 High: 160-189 Very High: >189 5 Because ethnic data is not always readily available, this report includes an eGFR for both -Americans and non- Americans. The National Kidney Disease Education Program (NKDEP) does not endorse the use of the MDRD equation for patients that are not between the ages of 18 and 70, are , have extremes of body size, muscle mass, or nutritional status, or are non- or non-. According to the National Kidney Foundation, irrespective of diagnosis, the stage of the disease is based on the level of kidney function: Stage Description GFR(mL/min/1.73 m(2)) 1 Kidney damage with normal or decreased GFR 90 2 Kidney damage with mild decrease in GFR 60-89 3 Moderate decrease in GFR 30-59 4 Severe decrease in GFR 15-29 5 Kidney failure <15 (or dialysis) 6 Copy Result to: KWABENA NELSON ([id number]) 7 Information Resource Consultant: [id number] SEE RESULT BELOW Name: LEONOR JON : [address]: Misbah Sánchez MD Acct: [id number] Unit: [id number] AGE: 67 Location: ED Re04/07/18 SEX: M Status: REG ER SPEC: [id number] LACEY: 04/07/[address]: Misbah Sánchez MD REQ: [id number] RECD: 04/07/18 STATUS: DEMETRIO VÁSQUEZ DR: Bill Nelson MD _ SOURCE: [facility]: ORDERED: Flu A B Request Procedure Result Reported Site Rapid Influenza A B Request Final 04/07/18- 2216 ML Specimen received for Influenza A/B Molecular testing * - [facility] . END OF REPORT DEPARTMENT OF PATHOLOGY, [address] [place] [address] Clarence Guardado M.D. Director [facility] # [id number] 9 Serum levels of PSA measured using the [employer] DXI Hybritech immunoassay should not be interpreted as absolute evidence of the presence or absence of disease. The PSA value should be used in conjunction with other pertinent clinical diagnostic procedures. The values obtained with different assay methods or kits cannot be used interchangeably. 10 Because ethnic data is not always readily available, this report includes an eGFR for both -Americans and non- Americans. The National Kidney Disease Education Program (NKDEP) does not endorse the use of the MDRD equation for patients that are not between the ages of 18 and 70, are , have extremes of body size, muscle mass, or nutritional status, or are non- or non-. According to the National Kidney Foundation, irrespective of diagnosis, the stage of the disease is based on the level of kidney function: Stage Description GFR(mL/min/1.73 m(2)) 1 Kidney damage with normal or decreased GFR 90 2 Kidney damage with mild decrease in GFR 60-89 3 Moderate decrease in GFR 30-59 4 Severe decrease in GFR 15-29 5 Kidney failure <15 (or dialysis) 11 Desirable: <150 Borderline High: 150-199 High: 200-499 Very High: >500 12 Desirable: <200 Borderline High: 200-239 High: >239 13 Low: <40 Desirable: 40-60 High: >60 14 Desirable: <100 Near Optimal: 100-129 Borderline High: 130-159 High: 160-189 Very High: >189 15 FASTING 10 HOUR 16 FASTING 10 HOUR 17 <1:80 (Negative) REFERENCE VALUE <1:80 (Negative) Test Performed by: [facility] [address] [place] [address] 18 Desirable: <150 Borderline High: 150-199 High: 200-499 Very High: >500 19 Desirable: <200 Borderline High: 200-239 High: >239 20 Low: <40 Desirable: 40-60 High: >60 21 Desirable: <100 Near Optimal: 100-129 Borderline High: 130-159 High: 160-189 Very High: >189 22 Therapeutic target for the treatment of diabetes mellitus patients is <7% HBA1C, and in selective patients <6.0%. Please refer to [place] [employer] diabetic care guidelines for further information. 23 FASTING 10 HOUR 24 Because ethnic data is not always readily available, this report includes an eGFR for both -Americans and non- Americans. The National Kidney Disease Education Program (NKDEP) does not endorse the use of the MDRD equation for patients that are not between the ages of 18 and 70, are , have extremes of body size, muscle mass, or nutritional status, or are non- or non-. According to the National Kidney Foundation, irrespective of diagnosis, the stage of the disease is based on the level of kidney function: Stage Description GFR(mL/min/1.73 m(2)) 1 Kidney damage with normal or decreased GFR 90 2 Kidney damage with mild decrease in GFR 60-89 3 Moderate decrease in GFR 30-59 4 Severe decrease in GFR 15-29 5 Kidney failure <15 (or dialysis) 25 Serum levels of PSA measured using the [employer] DXI Hybritech immunoassay should not be interpreted as absolute evidence of the presence or absence of disease. The PSA value should be used in conjunction with other pertinent clinical diagnostic procedures. The values obtained with different assay methods or kits cannot be used interchangeably. 26 Because ethnic data is not always readily available, this report includes an eGFR for both -Americans and non- Americans. The National Kidney Disease Education Program (NKDEP) does not endorse the use of the MDRD equation for patients that are not between the ages of 18 and 70, are , have extremes of body size, muscle mass, or nutritional status, or are non- or non-. According to the National Kidney Foundation, irrespective of diagnosis, the stage of the disease is based on the level of kidney function: Stage Description GFR(mL/min/1.73 m(2)) 1 Kidney damage with normal or decreased GFR 90 2 Kidney damage with mild decrease in GFR 60-89 3 Moderate decrease in GFR 30-59 4 Severe decrease in GFR 15-29 5 Kidney failure <15 (or dialysis) 27 FASTING 10 HOUR 28 Desirable <150 Borderline high 150-199 High 200-499 Very High >500 29 Desirable <200 Borderline high 200-239 High >239 30 Low <40 Desirable: 40-60 High: >60 31 Desirable: <100 mg/dL Near Optimal: 100-129 mg/dL Borderline High: 130-159 mg/dL High: 160-189 mg/dL Very High: >189 mg/dL 32 Please note: The following may produce a false positive D Dimer test: - Rheumatoid factor greater than 60 IU/ml - Plasma hemoglobin greater than 0.05 gm/dl - Bilirubin greater than 50 mg/dl - Lipids greater than 1000 mg/dl - FDP greater than 20 ug/ml 33 Desirable <150 Borderline high 150-199 High 200-499 Very High >500 34 Desirable <200 Borderline high 200-239 High >239 35 Low <40 Desirable: 40-60 High: >60 36 Desirable: <100 mg/dL Near Optimal: 100-129 mg/dL Borderline High: 130-159 mg/dL High: 160-189 mg/dL Very High: >189 mg/dL Procedures Date Code Description Status 11/13/2018 61821 Stress Test Completed 11/13/2018 86655 Myocardial Perfusion Imaging Tomographic (Spect) Completed Multiple Studies 09/21/2018 11329 EKG Tracing & Interpretation Completed 06/25/2018 21436 EKG Tracing & Interpretation Completed 06/14/2017 90980 Repair Hernia Inguinal > 5Yrs, Reducible Completed 06/14/2017 16569 Repair Hernia Inguinal > 5Yrs, Reducible Completed 05/31/2017 00473 EKG Tracing & Interpretation Completed 05/10/2017 12450 ECHO Transthoracic, Real-Time 2D With Doppler And Color Completed Flow 01/11/2017 29588 Admin Of Inj Completed 08/23/2016 41300 EKG Tracing & Interpretation Completed 07/22/2016 20860 EKG, Interpretation Only Completed 07/21/2016 86257 Left Heart Cath. Incl S/I Coronaries, Angio S/I V Gram Completed If Done 07/21/2016 45848 EKG, Interpretation Only Completed 07/21/2016 18692 Revascularization Acute Total/Subtotal Occlusion Completed 07/21/2016 45254 Percutaneous Transcatheter Placement Of Intracoronary Completed Stent 07/20/2016 61223 ECHO Transthorasic Realtime 2D W Doppler & Color Flow Completed Hosp 04/16/2013 [id number] Colonoscopy Completed Encounters Type Date Location Provider Dx Diagnosis Office Visit 11/23/2018 [facility] Jyoti Beltran, I25.10 [facility] 9:20a Of [facility] AT [facility]. 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. 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 D50.9 Iron deficiency anemia, unspecified L60.3 Nail dystrophy Office Visit 05/31/2017 3:40p [facility] Mary Gilbert I25.10 [facility] Of [facility] AT [facility] MD Amy, disease of FACC, FSCAI three affiliated coronary artery w/o ang pctrs Office Visit 05/29/2017 10:30a Surgical Nick Price K40.21 [facility] MD Alec, inguinal hernia, FACS w/o obst or gangrene, recurrent N43.2 Other hydrocele Office 03/16/2017 [place] [facility] E78.00 Pure Visit 4:00p Cardiology Ethan Beltran, tino, [facility] unspecified I10 Essential (primary) hypertension I25.10 Ath[facility] heart 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 Office Visit 01/19/2017 10:10a [facility] Internal Bill Molina M71.22 Synovial cyst of Alysha Nelson M.D.,FACP popliteal space [address] [Iglesias], left knee I82.402 Acute embolism and thombos unsp deep veins of l low extrem Office Visit 01/11/2017 9:10a [facility] Internal Bill Molina I25.10 [facility] - Melissa Nelson M.D.,FACP disease of Rd three affiliated coronary artery w/o ang pctrs E78.00 Pure hypercholesterolemia, unspecified B35.6 Tinea cruris S40.862A Insect bite (nonvenomous) of left upper arm, init encntr M71.22 Synovial cyst of popliteal space [Iglesias], left knee Z23 Encounter for immunization Office Visit 09/27/2016 9:00a [facility] Jyoti Beltran, I25.10 [facility] heart Of [facility] 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 E78.00 Pure hypercholesterolemia, unspecified I10 Essential (primary) hypertension Office Visit 08/23/2016 3:45p [facility] Jyoti Beltran, I25.10 Ath[facility] heart Of [facility] 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 E78.00 Pure hypercholesterolemia, unspecified I10 Essential (primary) hypertension R00.1 Bradycardia, unspecified Office Visit 07/27/2016 [facility] Mary Gilbert I21.4 Non-St elevation 10:00a Of [facility] AT [facility] MD Amy, (Nstemi) FAC, [facility] myocardial infarction Office Visit 07/22/2016 [facility] Mary Gilbert I21.4 Non-St elevation 2:20p Of [employer] AT [facility] MD Amy, (Nstemi) FAC, [facility] myocardial infarction Office Visit 07/22/2016 [facility] I24.9 Acute ischemic 10:57a Assoc,anahy Gallardo, [employer] heart disease, Hospitalists unspecified K21.9 Gastro-esophageal reflux disease without esophagitis E05.90 Thyrotoxicosis, unsp without thyrotoxic crisis or storm I10 Essential (primary) hypertension Office Visit 07/21/2016 [facility] I24.9 Acute ischemic 10:56a Assoc,anahy Gallardo, [employer] heart disease, Hospitalists unspecified E05.90 Thyrotoxicosis, unsp without thyrotoxic crisis or storm K21.9 Gastro-esophageal reflux disease without esophagitis I10 Essential (primary) hypertension Office 07/20/2016 [facility] I24.9 Acute ischemic Visit 10:38a Assoc,SHAYY Guzman heart disease, Hospitalists unspecified E05.90 Thyrotoxicosis, unsp without thyrotoxic crisis or storm K21.9 Gastro-esophageal reflux disease without esophagitis I10 Essential (primary) hypertension Office Visit 07/20/2016 12:16p [facility] Jyoti Beltran, R07.9 Chest pain, Of [facility] unspecified R06.02 Shortness of breath R94.31 Abnormal electrocardiogram [ECG] [EKG] R79.89 Other specified abnormal findings of blood chemistry Plan of Treatment 11/23/2018 - Jyoti Beltran M.D.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
--- NOTE | 2018-12-06 03:16 | ED ---
Upper Extremity Pain - HPI Summary HPI Summary: The patient is a 68 year old M presenting to [facility] with a chief complaint of R shoulder pain since the morning of 12/05/18 and worsening throughout the day. The pain is described as aching. He states that he hasnt been able to sleep tonight due to the pain. He stated that the last time he injured his shoulder was in the mid-. He has pain with palpation and increased pain with ROM. He states that he usually can pop his shoulder back into place but is unable to do the manipulations with any effect. He states that he most likely injured his shoulder while mowing the lawn which caused his shoulder to become tired. The pt rates the pain a 4/10 in severity. He denies any decreased sensations in his R shoulder. Movement aggravates the pain and resting the shoulder alleviates the pain along with OTC pain medications. 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 Negative: Numbness/Tingling - Allergies/Home Medications Allergies/Adverse Reactions: Allergies Allergy/AdvReac Type Severity Reaction Status Date / Time codeine Allergy Nausea Verified 12/06/18 02:45 PMH/Surg Hx/FS Hx/Imm Hx Previously Healthy: No Cardiovascular History: Reports: Hx Coronary Artery Disease, Hx Hypertension, Hx Myocardial Infarction, Other Cardiovascular Problems/Disorders - hyperlipidemia Respiratory History: Denies: Hx Asthma GI History: Reports: Hx Gastroesophageal Reflux Disease - no longer on med History: Reports: Hx Benign Prostatic Hyperplasia, Other Problems/ Disorders - Born with only a Left kidney, prostate cancer Musculoskeletal History: Reports: Hx Orthopedic Injury - Hx bilateral shoulder dislocation Sensory History: Reports: Hx Contacts or Glasses - glasses Opthamlomology History: Reports: Hx Contacts or Glasses - glasses - Cancer History Cancer Type, Location and Year: Present: contained, in prostate Hx Chemotherapy: No Hx Radiation Therapy: No Hx Palliative Cancer Treatment: No - Surgical History Surgery Procedure, Year, and Place: inguianl hernia repair on 06/14/17 Hx Anesthesia Reactions: No Infectious Disease History: No Infectious Disease History: Denies: Traveled Outside the [place] in Last 30 Days - Family History Known Family History: Positive: Diabetes - Social History Alcohol Use: Rare Hx Substance Use: No Substance Use Type: Reports: None Hx Tobacco Use: No Smoking Status (MU): Never Smoked Tobacco Review of Systems Positive: Decreased ROM - R shoulder, Other - POSITIVE: Pain with ROM on the R shoulder, Pain with palpation on the R shoulder Negative: Numbness All Other Systems Reviewed And Are Negative: Yes Physical Exam - Summary Physical Exam Summary: VITAL SIGNS: Reviewed. GENERAL: Patient is a well-developed and nourished male who is lying comfortable in the stretcher. Patient is not in any acute respiratory distress. HEAD AND FACE: No signs of trauma. No ecchymosis, hematomas or skull depressions. No sinus tenderness. EYES: PERRLA, EOMI x 2, No injected conjunctiva, no nystagmus. EARS: Hearing grossly intact. Ear canals and tympanic membranes are within normal limits. MOUTH: Oropharynx within normal limits. NECK: Supple, trachea is midline, no adenopathy, no JVD, no carotid bruit, no c- spine tenderness, neck with full ROM CHEST: Symmetric, no tenderness at palpation LUNGS: Clear to auscultation bilaterally. No wheezing or crackles. CVS: Regular rate and rhythm, S1 and S2 present, no murmurs or gallops appreciated. ABDOMEN: Soft, non-tender. No signs of distention. No rebound no guarding, and no masses palpated. Bowel sounds are normal. EXTREMITIES: Mild tendnerss to R shoulder anteriorly. Increased pain with abduction. no edema, no cyanosis or clubbing. NEURO: Alert and oriented x 3. No acute neurological deficits. Speech is normal and follows commands. SKIN: Dry and warm Triage Information Reviewed: Yes Vital Signs On Initial Exam: Initial Vitals Temp Pulse Resp BP Pulse Ox 98.8 F 68 16 161/81 98 12/06/18 02:43 12/06/18 02:43 12/06/18 02:43 12/06/18 02:43 12/06/18 02:43 Vital Signs Reviewed: Yes Diagnostics - Vital Signs Vital Signs Temp Pulse Resp BP Pulse Ox 12/06/18 02:43 98.8 F 68 16 161/81 98 - Laboratory Lab Statement: Any lab studies that have been ordered have been reviewed, and results considered in the medical decision making process. - Radiology R shoulder X-Ray Radiology Interpretation Completed By: ED Physician Summary of Radiographic Findings: Pt has calcific tendinits but no fracture or dislocation. Pending offical radiologist review. Re-Evaluation - Re-Evaluation First Eval Re-Evaluation Time: 03:18 Change: Unchanged Comment: Pt states that he has one kidney and refuses all pain medications. States that the pain is not severe enough to warrant pain medications. Second Eval Re-Evaluation Time: 03:55 Change: Improved Comment: Pt was informed of the X-Ray results and the discharge plan. The pt is agreeable and will be discharged home. Course/Dx - Course Course Of Treatment: The patient is a 68 year old M presenting to [facility] with a chief complaint of R shoulder pain since the morning of 12/05/18 and worsening throughout the day. He states that he hasnt been able to sleep tonight due to the pain. Upon his PE it was found that he had mild tendnerss to R shoulder anteriorly, increased pain with abduction and he had his neuromuscular components intact. The pt declined pain medications. The pt received a R shoulder X-Ray which shows calcific tendinits but no fracture or dislocation. The pt will be discharged home with a Dx of calcific tenditits of the R shoulder and instructed to follow up with Dr. Clement, orthopedic, today and return to the ED with any new or worsening symptoms. Pt states that he has oxycodone at home and will be taking that to help with the pain. - Diagnoses Provider Diagnoses: Calcific tendinitis of right shoulder Discharge - Sign-Out/Discharge Documenting (check all that apply): Patient Departure - discharge Patient Received Moderate/Deep Sedation with Procedure: No - Discharge Plan Condition: Stable Disposition: HOME Patient Education Materials: Calcific Tendinitis (ED) Referrals: Noe Clement MD [Medical Doctor] - 1 Day Additional Instructions: Please return to the mergency department with any new or worsening symptoms and follow up with Dr. Clement, Orthopedic, today 12/06/18. - Attestation Statements Document Initiated by Scribe: Yes Documenting Scribe: Javad Watts Provider For Whom Scribe is Documenting (Include Credential): Kristin Hernandes MD Scribe Attestation: IJavad, scribed for Kristin Hernandes MD on 12/06/18 at 0355. Status of Scribe Document: Ready
[2018-12-06 04:24] VITALS: BP 149/75
== END | disposition home or self-care (01) ==
LOC: ED 02:40
DX: M75.31 Calcific tendinitis of right shoulder (principal); Z88.5 Allergy status to narcotic agent
CPT/HCPCS: 99283; A9270-GY

== ENCOUNTER 2021-08-19 12:18 | Observation (INO) ==
[2021-08-19] MEDS ORDERED: NS 0.9% 1000 ml BAG 1,000 ML IV ONE ×2 (14:15→17:35)
[2021-08-19] MEDS ORDERED: Ondansetron 4 mg VIAL 2 MG/ML 2 ml VIAL IV ONE (14:15)
[2021-08-19 15:28] LABS: ABS Lymphocytes 0.1 10^3/ul (1.0-4.8); ABS Monocytes 0.3 10^3/ul (0-0.8); ABS Neutrophils 9.6 10^3/ul (1.5-7.7); Hematocrit 48 % (42-52); Hemoglobin 16.3 g/dL (14.0-18.0); Lymphocyte % 1.4 %; Mean Corpuscular HGB Conc 34 g/dL (31-36); Mean Corpuscular Hemoglobin 30 pg (27-31); Mean Corpuscular Volume 89 fL (80-94); Mean Platelet Volume 8.2 fL (7.4-10.4); Platelet Count 233 10^3/uL (150-450); Red Blood Count 5.43 10^6 /uL (4.18-5.48); Red Cell Distribution Width 14 % (10-15)
[2021-08-19 15:40] LABS: Albumin 4.8 g/dL (3.2-5.2); Albumin/Globulin Ratio 1.7 (1-3); Globulin 2.8 g/dL (2-4); Potassium 3.8 mmol/L (3.5-5.0); Total Bilirubin 0.8 mg/dL (0.2-1.0); Total Protein 7.6 g/dL (6.4-8.9); eGFR CKD-EPI 50.8 (>60)
[2021-08-19 15:41] LABS: Troponin I 0.02 ng/mL (<0.03)
[2021-08-19] MEDS ORDERED: Iodixanol (CONTRAST) 320 MG/ML 100 ML SDV IV ONE (16:06)
[2021-08-19 18:29] LABS: Rapid COVID-19 Molecular Undetected (Undetected)
[2021-08-19] MEDS ORDERED: Enoxaparin 40 MG/0.4 ML SYR SUBCUT SCH (20:00)
[2021-08-19] MEDS: Lactated Ringers 1000 ml BAG 1,000 ML IV SCH (23:25)
[2021-08-20 07:52] LABS: Hematocrit 34 % (42-52); Hemoglobin 11.6 g/dL (14.0-18.0); Mean Corpuscular HGB Conc 34 g/dL (31-36); Mean Corpuscular Hemoglobin 30 pg (27-31); Mean Corpuscular Volume 89 fL (80-94); Mean Platelet Volume 8.7 fL (7.4-10.4); Platelet Count 144 10^3/uL (150-450); Red Blood Count 3.84 10^6 /uL (4.18-5.48); Red Cell Distribution Width 14 % (10-15); White Blood Count 13.1 10^3/uL (3.5-10.8)
[2021-08-20 08:08] LABS: Calcium 8.1 mg/dL (8.6-10.3); Potassium 4.1 mmol/L (3.5-5.0); eGFR CKD-EPI 67.9 (>60)
[2021-08-20 08:58] VITALS: BP 111/60
[2021-08-20] MEDS ORDERED: Aspirin EC 81 mg TAB.EC (enteric coated) PO SCH (09:00)
[2021-08-20] MEDS: Lactated Ringers 1000 ml BAG 1,000 ML IV SCH (09:01)
== END 2021-08-20 11:30 | disposition home or self-care (01) ==
LOC: EDHOLD 12:18 → ED 12:18 → SUATTDRO 19:46 → MED 22:54
PROVIDERS: ADMIT Hospitalist; ATTEND Internal Medicine

== ENCOUNTER 2023-08-01 04:57 | Observation (INO) ==
[2023-08-01 06:06] LABS: ABS Eosinophils 0.2 10^3/uL (0.0-0.5); ABS Lymphocytes 1.3 10^3/uL (1.0-4.8); ABS Monocytes 0.6 10^3/uL (0.0-1.1); ABS Neutrophils 3.9 10^3/uL (1.5-7.6); ABS Nucleated RBC 0.01 10^3/ul; Eosinophil % 3.4 %; Hematocrit 36.6 % (38-53); Lymphocyte % 21.1 %; Mean Corpuscular Hemoglobin 30.7 pg (27-33); Mean Corpuscular Hgb Conc 35.5 g/dL (31-36); Mean Corpuscular Volume 86.5 fL (80-97); Mean Platelet Volume 8.3 fL (7.5-11.2); Nucleated Red Blood Cells % 0.1 %/100WBC (0.0-0.8); Platelet Count 201 10^3/uL (150-450); Red Blood Count 4.23 10^6/uL (4.06-5.63); Red Cell Distribution Width 14.1 % (12-17)
[2023-08-01 06:28] LABS: Albumin 4.1 g/dL (3.2-5.2); Albumin/Globulin Ratio 1.6 (1-3); Calcium 9.3 mg/dL (8.6-10.3); Creatinine, Serum 1.26 mg/dL (0.67-1.17); Globulin 2.5 g/dL (2-4); Potassium 3.9 mmol/L (3.5-5.0); Total Bilirubin 0.5 mg/dL (0.2-1.0); Total Protein 6.6 g/dL (6.4-8.9); eGFR CKD-EPI 61.4 (>60)
[2023-08-01 07:37] LABS: High Sensitivity Troponin 1 Hr 6 pg/mL (<20)
[2023-08-01] MEDS: Iodixanol (CONTRAST) 320 MG/ML 100 ML SDV IV ONE ×2 (07:41→11:23)
[2023-08-01] MEDS: Dexamethasone IV 4 MG/ML VIAL 1 ml VIAL IV SLOW PU ONE (11:23)
[2023-08-01] MEDS: Enoxaparin 40 MG/0.4 ML SYR SUBCUT SCH (12:24)
[2023-08-01] MEDS ORDERED: Polyethylene Glycol 3350 17 GM PACKET PO PRN (12:33)
[2023-08-01] MEDS: Gadoteridol (CONTRAST) 279.3 MG/ML 10 ML IV ONE (18:18)
[2023-08-01] MEDS: Aspirin EC 81 mg TAB.EC (enteric coated) PO SCH (19:47)
[2023-08-01] MEDS: Dexamethasone IV 4 MG/ML VIAL 1 ml VIAL IV SLOW PU SCH (19:47)
[2023-08-02 06:23] LABS: Hematocrit 35.9 % (38-53); Hemoglobin 12.6 g/dL (13.2-16.3); Mean Corpuscular Hemoglobin 30.3 pg (27-33); Mean Corpuscular Volume 86.6 fL (80-97); Mean Platelet Volume 8.5 fL (7.5-11.2); Platelet Count 205 10^3/uL (150-450); Red Blood Count 4.15 10^6/uL (4.06-5.63); Red Cell Distribution Width 13.6 % (12-17)
[2023-08-02 06:49] LABS: Calcium 9.1 mg/dL (8.6-10.3); Creatinine, Serum 0.92 mg/dL (0.67-1.17); Magnesium 1.8 mg/dL (1.9-2.7); Phosphorus 3.5 mg/dL (2.5-5.0); eGFR CKD-EPI 89.5 (>60)
[2023-08-02] MEDS: Senna TAB 8.6 mg TAB PO PRN (10:36)
[2023-08-02 11:27] VITALS: BP 125/74
== END 2023-08-02 13:19 | disposition home or self-care (01) ==
LOC: ED 04:57 → EDHOLD 04:57 → MEDTELE 13:22
PROVIDERS: ADMIT Internal Medicine; ATTEND Internal Medicine